=== PATIENT | male | born 1985 | race Caucasian/White ===

== ENCOUNTER 2020-05-16 16:19 | Outpatient (REF) | payer MEDICAID, SELFPAY | END 2020-05-16 16:20 | disposition home or self-care (01) | LOC: HO.LAB 16:19 | PROVIDERS: PCP Student in an Organized Health Care Education/Training Program; Visit Provider Internal Medicine | DX: Z20.828 Contact with and (suspected) exposure to other viral communicable diseases (principal) | CPT/HCPCS: 87635 ==

== ENCOUNTER 2020-06-24 15:01 | Inpatient (IN) | payer MEDICAID, SELFPAY ==
--- NOTE | 2020-06-24 | XR_ITS ---
EXAMINATION: LEFT TIB-FIB, LEFT ANKLE CLINICAL INFORMATION: Status post fall COMPARISON: None TECHNIQUE: 2 views left tib-fib, 2 views left ankle FINDINGS: There is a comminuted fracture involving the proximal fibular metaphysis with minimal fracture fragment displacement. The visualized portions of the knee joint appear unremarkable. There is a spiral fracture involving the distal tibia at the diaphyseal metaphyseal junction. There is mild lateral displacement of the distal fracture fragment without significant angulation. The ankle joint appears normal. No other fractures are seen. XR/XR ankle LT min 3V IMPRESSION: Tibial and fibular fractures as described above
--- NOTE | 2020-06-24 | XR_ITS ---
EXAMINATION: LEFT TIB-FIB, LEFT ANKLE CLINICAL INFORMATION: Status post fall COMPARISON: None TECHNIQUE: 2 views left tib-fib, 2 views left ankle FINDINGS: There is a comminuted fracture involving the proximal fibular metaphysis with minimal fracture fragment displacement. The visualized portions of the knee joint appear unremarkable. There is a spiral fracture involving the distal tibia at the diaphyseal metaphyseal junction. There is mild lateral displacement of the distal fracture fragment without significant angulation. The ankle joint appears normal. No other fractures are seen. XR/XR tibia fibula LT 2V IMPRESSION: Tibial and fibular fractures as described above
[2020-06-24 15:51] VITALS: BP 130/75; BP 135/67; PULSE 71; PULSE 80; RESP 17; TEMP 35.9; O2SAT 98; O2SAT 99; BMI 60.5
--- NOTE | 2020-06-24 20:14 | PC.NURSE ---
JESSICA CHIRINOS SPOKE WITH PERCY LYMAN AND PT WILL NEED TO ADMITTED.
--- NOTE | 2020-06-24 20:27 | ED_ITS ---
HPI - Extremity Injury (Lower) General Chief Complaint: Fall Stated Complaint: ankle pain Time Seen by Provider: 06/24/20 19:50 Source: family Mode of arrival: ambulatory History of Present Illness HPI Narrative: 35-year-old male with history of TBI from fall from at the age of 2 1/2 from forth floor window with residual right side weakness with contracture, Blindness right eye and Anxiety disorder under the care of legal guardian Lashonda [phone] and he stays with home shear staff Marta who presents via EMS from the day program at [facility] in [place] with complaint of injury to the left lower leg from a fall while he was walking out to go home at the end of the day program. No other injury. Fall was witnes sed. Nurse at the program called EMS. Department social services coordinator worker Omidveena is is a sign worker Lelia who is his healthcare proxy/legal guardian is currently in [place] for a work trip however she got stuck up there due to the COVID-19 she is in her 70s and has known [place] since the age of 2 when he had the initial injury. As noted above he is known to department social services coordinator and has a sign worker. complaint: leg injury Onset (ago): hour(s) Injury: Left: ankle Type of Injury: inversion Place: other (At Day program [facility] ) Other symptoms: none Related Data Home Medications Medication Instructions Recorded Confirmed Celexa 60 mg PO DAILY 06/24/20 06/24/20 Flonase 50 mcg NOSTRIL-R DAILY MDD 2 SPRAYS 06/24/20 06/24/20 acetaminophen 650 mg PO NEEDED PRN 06/24/20 06/24/20 gabapentin 60 mg PO BID MDD 600 06/24/20 06/24/20 loratadine 10 mg PO DAILY 06/24/20 06/24/20 omeprazole 20 mg PO DAILY MDD 20 MG 06/24/20 06/24/20 Allergies Allergy/AdvReac Type Severity Reaction Status Date / Time No Known Allergies Allergy Verified 06/24/20 19:41 [No Known Allergies*] Review of Systems Review of Systems: Constitutional: No Weight loss, No Fever, No Chills, No Night Sweats, No Fatigue, No Malaise ENT/Mouth: No Hearing loss, No Ear Pain, No Nasal Congestion, No Sinus Pain, No Hoarseness, No sore throat, No Rhinorrhea, No Swallowing Difficulty Eyes: No Eye Pain, No Swelling, No Redness, No Foreign Body, No Discharge, No Vision Changes Cardiovascular: No Chest Pain, No SOB, No Dyspnea on Exertion, No Orthopnea, No Edema, No Palpitations Respiratory: No Cough, No Sputum, No Wheezing No Dyspnea Gastrointestinal: No Nausea, No Vomiting, No Diarrhea, No Constipation, No abdominal Pain, No Hematochezia, No Melena Genitourinary: no irregular bleeding, No Dysuria, No Urinary Frequency, No Hematuria, No Urinary Incontinence, No Urgency, No Flank Pain, No Urinary Flow Changes, No Hesitancy Musculoskeletal: As noted in HPI Skin: No Skin Lesions, No rash Neuro: No Weakness, No Numbness, No Paresthesias, No Loss of Consciousness, No Dizziness, No Headache Psych: No Social Issues Heme/Lymph: No Bruising, No Bleeding,No Lymphadenopathy Endocrine: No Polyuria, No Polydipsia, No Temperature Intolerance Yes all other systems are reviewed and are negative [facility] Past Medical History Medical History Generalized anxiety disorder GERD (gastroesophageal reflux disease) Intellectual disability Obesity Traumatic brain injury Social History Social History Alcohol intake: never Smoked in Last 30 Days: No Advance Directives: No Advance Directives Information Provided: Yes Physical Exam Vital Signs: Vital Signs: Last Vital Signs Temp 96.6 F L 06/24/20 15:51 Pulse 71 06/24/20 15:51 Resp 17 06/24/20 15:51 BP 135/67 06/24/20 15:51 Pulse Ox 99 06/24/20 15:51 Body Mass Index 60.5 reviewed Const: General: cooperative and healthy appearing; No acute distress or intoxicated appearing Nutritional Appearance: average body habitus Orien tation/consciousness: patient oriented x3 HENMT: Head: Yes normal to inspection Ears: hearing grossly normal bilaterally Eyes: General: appearance normal, both eyes and all related structures Visual Nunes: normal visual nunes by confrontation Neck: Neck: Yes normal visual inspection and No tender Thyroid: Thyroid normal Chest: Chest palpation & inspection: normal inspection of the chest Resp: Effort & Inspection: normal respiratory effort Cardio: Jugular venous distension: no JVD GI: Inspection: Yes normal to inspection Percussion: Yes normal to percussion Auscultation: normal bowel sounds : General: Yes no CVA tenderness Back/Spine/Pelvis: Back: no CVA tenderness Skin: General skin exam: no rashes or lesions noted Neuro: General: patient oriented x3 Extrem: General: Yes normal to inspection Ankle/foot/toe images: 1. Area of pain, no swelling. No swelling to suggest compartment. No open wound. Course Course Course Narrative: Spoke to legal guardian Mary in via phone [phone] he is currently in [place] Reevaluation(s) Reevaluation #1: Posterior short-leg splint applied with extra caution. Consultations Consultation #1: Given the special circumstances case was discussed with Orthopedic on-call Maddison GREER Will admit to service. Likely anticipated surgery tomorrow Procedures Orthopedic Splinting/Casting Injury #1: Side: left Lower Extremity Injury Location: lower leg Lower Extremity Immobilizer: posterior splint and David wrap Additional Comments: Posterior short-leg splint applied. Neurovascularly intact. No evidence of compartment. Elevated on 3 pillows. MDM - Extremity Injury (Lower) Medical Records Attestation: I reviewed the patient's medical records. Lab Data Attestation: I reviewed the patient's lab results. Result diagrams: 06/24/20 20:40 06/24/20 20:40 Imaging Data Ext : Radiologist's impression: [place] [id number] XRay Report Signed Patient: Richar Escalona#: [id number] : 1985Acct:[id number] Age/Sex: 35 / MADM Date: 06/24/20 Loc: HO.ED Attending Dr: Ordering Physician: Petros Melendez MD Date of Service: 06/24/20 Procedure(s): XR ankle LT min 3V Accession Number(s): [id number] cc: Petros Melendez MD~ EXAMINATION: LEFT TIB-FIB, LEFT ANKLE CLINICAL INFORMATION: Status post fall COMPARISON: None TECHNIQUE: 2 views left tib-fib, 2 views left ankle FINDINGS: There is a comminuted fracture involving the proximal fibular metaphysis with minimal fracture fragment displacement. The visualized portions of the knee joint appear unremarkable. There is a spiral fracture involving the distal tibia at the diaphyseal metaphyseal junction. There is mild lateral displacement of the distal fracture fragment without significant angulation. The ankle joint appears normal. No other fractures are seen. XR/XR ankle LT min 3V IMPRESSION: Tibial and fibular fractures as described above Dictated By:SANDIP ENG MD Signed By:<Electronically signed by SANDIP ENG MD in OV>06/24/201937 DD/ 12 TD/TT: Sales Representative [employer]: Discharge Plan Discharge Clinical Impression: Fracture of tibia and fibula Qualifiers: Encounter type: initial encounter Fracture type: closed Laterality: left Qualified Code(s): S82.202A - Unspecified fracture of shaft of left tibia, initial encounter for closed fracture Patient Disposition: Admitted As Inpatient
[2020-06-24 20:47] LABS: MANUAL DIFF FLAG NO
[2020-06-24 20:50] LABS: Basophils Percent Auto 0.1 % (0-2); Hematocrit 42.5 % (42-52); Hemoglobin 14.9 g/dl (14.0-18.0); Imm Gran Abs Auto 0.04 X10*3/uL (0.00-0.03); Imm Gran Pct Auto 0.3 % (0.0-0.4); Lymphocytes Absolute Auto 0.8 X10*3/uL (1.2-4.9); Lymphocytes Percent Auto 6.6 % (20-40); Mean Corpuscular HGB Conc 35.1 g/dl (31.0-36.0); Mean Corpuscular Hemoglobin 29.6 pg (27.0-33.0); Mean Corpuscular Volume 84.3 fL (80-98); Mean Platelet Volume 10.2 fL (9.4-12.4); Monocytes Absolute Auto 0.5 X10*3/uL (0.1-1.2); Platelet Count 319 X10*3/uL (160-400); Red Blood Count 5.04 X10*6/uL (4.60-5.80); Red Cell Distribution Width 12.6 % (11.0-16.0); White Blood Count 12.4 X10*3/uL (4.8-10.8)
[2020-06-24] MEDS: LORazepam 2 MG/ML VIAL 0.5 MG IVPUSH (21:02)
[2020-06-24] MEDS: ondansetron HCL 4 MG/2 ML VIAL IVPUSH (21:02)
[2020-06-24 21:03] LABS: Prothrombin Time 11.9 SEC (10.8-13.0)
[2020-06-24 21:06] LABS: Partial Thromboplastin Time 24.7 SEC (24.1-38.0)
[2020-06-24 21:13] LABS: Alanine Aminotransferase 42 U/L (0-40); Albumin Level 4.8 g/dL (3.5-5.0); Alkaline Phosphatase 59 U/L (39-117); Anion Gap 15 (12-20); Aspartate Amino Transferase 22 U/L (5-37); Bilirubin Total 0.6 mg/dL (0.0-1.0); Blood Urea Nitrogen 17 mg/dL (9-16); Calcium 9.1 mg/dL (8.4-10.2); Carbon Dioxide 23 mmol/L (22-29); Chloride 102 mmol/L (96-108); Creatinine Clr Calc Pharmacy 191.8; Estimated Glomerular Filt Rate > 60; Glucose Random 117 mg/dL (60-115); Sodium 136 mmol/L (135-145); Total Protein 8.4 g/dL (6.5-8.0)
[2020-06-24 21:19] VITALS: RESP 18
[2020-06-24] MEDS: Morphine Sulfate 2 MG/ML CARTRIDGE IVPUSH (21:19)
[2020-06-24 21:22] LABS: COVID-19 Test Negative (Negative)
--- NOTE | 2020-06-24 21:24 | PC.NURSE ---
LEFT LOWER EXTREMITY WRAPPED IN [facility] [employer]ANDAGES BY JESSICA CHIRINOS. TOLERATED PROCEDURE WELL. AWAITING BED ASSIGNMENT/ADMISSION.
--- NOTE | 2020-06-24 22:00 | PC.NURSE ---
PT DEVELOPMENT DELAYED BASE HAS SCHOOL PROGRAM DIRECTOR ADULT FOSTER MOTHER AT BEDSIDE AT ALL TIME CALL BE IN PLACE.
[2020-06-24 22:08] VITALS: BP 121/79; PULSE 101; RESP 16; TEMP 37.2; O2SAT 95
[2020-06-24 22:52] VITALS: BP 122/66; PULSE 100; RESP 16; TEMP 37.2
--- NOTE | 2020-06-24 23:11 | PC.NURSE ---
NO ROOM AVAILABLE AT THIS TIME FOR UPSTAIRS BUSINESS PROGRAMMER AWARE. PT CALM AND COMFORTABLE AT THIS TIME.
--- NOTE | 2020-06-24 23:58 | PC.NURSE ---
PT TRANSFERED TO MAIN ED REPORT GIVEN TO ROYAL CHENG.
[2020-06-25] VITALS (17 sets, daily range): BP systolic 117–140; BP diastolic 55–86; PULSE 89–106; RESP 14–20; TEMP 36–37.4; O2SAT 88–97; BMI 27.4
[2020-06-25] MEDS: 0.9 % Sodium Chloride Flush 3 ML SYRINGE IVFLUSH (06:26)
[2020-06-25] MEDS: Dextrose 5 % and 0.45 % NaCl 1,000 ML 80 ML IVCONT ×2 (06:26→16:58)
[2020-06-25] MEDS: HYDROmorphone HCl 0.5 MG/0.5 ML SYRINGE 0.25 MG IVPUSH (07:20)
--- NOTE | 2020-06-25 08:09 | P.HPOP_ITS ---
History of Present Illness History of Present Illness Date of Service: 06/25/20 <Maddison Coronado PA-C - Last Filed: 06/25/20 14:50> 06/25/20 <Gloria Blackburn - Last Filed: 06/25/20 10:27> Chief complaint: KNEE PAIN <Maddison Coronado PA-C - Last Filed: 06/25/20 14:50> Narrative: Evangelista Escalona is a 35 year old male who has a h/o TBI from a fall out a 3rd story window when he was [age] years old. He is developmentally delayed as a result from this. 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 This was an unwitnessed fall. The staff at [employer] called EMS and he was transported to the ED for futher evaluation. On exam and xrays, he was found to have a left tibial shaft fracture. He is ambulatory without assistance. He lives with his care provider Marta and is pretty independent with his needs. He was admitted to orthopedic service for surgical planning. <Maddison Coronado PA-C Last Filed: 06/25/20 14:50> Review of Systems Review of Systems: Yes all other systems are reviewed and are negative <Maddison Coronado PA-C Last Filed: 06/25/20 14:50> [facility] Past Medical History Medical History: Medical History Generalized anxiety disorder GERD (gastroesophageal reflux disease) Intellectual disability Obesity Traumatic brain injury <Maddison Coronado PA-C Last Filed: 06/25/20 14:50> Social History Social History: Social History Alcohol intake: never Smoking Status: Never smoker Smoked in Last 30 Days: No Second Hand Smoke Exposure: No Use of substances other than those prescribed or required for medical reasons: No Advance Directives: No Advance Directives Information Provided: Yes <Maddison Coronado PA-C Last Filed: 06/25/20 14:50> Meds Allergies/Adverse reactions: Allergies Allergy/AdvReac Type Severity Reaction Status Date / Time No Known Allergies Allergy Verified 06/24/20 19:41 [No Known Allergies*] <Maddison Coronado PA-C Last Filed: 06/25/20 14:50> Home medications: Home Medications Medication Instructions Recorded Confirmed Type acetaminophen 650 mg PO Q4H PRN 06/25/20 06/25/20 History citalopram [Celexa] 60 mg PO DAILY 06/25/20 06/25/20 History fluticasone propionate [Flonase] 2 spray INTRANASAL DAILY 06/25/20 06/25/20 History gabapentin 300 mg PO BID 06/25/20 06/25/20 History loratadine 10 mg PO DAILY 06/25/20 06/25/20 History omeprazole 20 mg PO DAILY 06/25/20 06/25/20 History <Maddison Coronado PA-C Last Filed: 06/25/20 14:50> Physical Exam Vital Signs: Vital Signs: Last Vital Signs Temp 98.2 F 06/25/20 07:13 Pulse 99 06/25/20 07:13 Resp 18 06/25/20 07:13 BP 121/73 06/25/20 07:40 Pulse Ox 96 06/25/20 07:13 Body Mass Index 60.5 <Maddison Coronado PA-C Last Filed: 06/25/20 14:50> Const: General: cooperative and no acute distress <Maddison Coronado PA-C Last Filed: 06/25/20 14:50> Orientation/consciousness: patient oriented x3 <Maddison Coronado PA-C Last Filed: 06/25/20 14:50> HENMT: Head: Yes normal to inspection, Yes normocephalic and Yes atraumatic <Maddison Coronado PA-C Last Filed: 06/25/20 14:50> Eyes: General: appearance normal, both eyes and all related structures <Maddison Coronado PA-C Last Filed: 06/25/20 14:50> Neck: Neck: Yes normal visual inspection and Yes no lymphadenopathy <Alonso Coronado PA-C Last Filed: 06/25/20 14:50> Resp: Effort & Inspection: normal respiratory effort and able to speak in co mplete sentences <Maddison Coronado PA-C Last Filed: 06/25/20 14:50> Cardio: Rate: regular rate <HAYDE Cardenas Last Filed: 06/25/20 14:50> Peripheral pulses: Peripheral pulses 2+ throughout <HAYDE Cardenas Last Filed: 06/25/20 14:50> GI: Palpation (GI): Soft to palpation <Maddison Coronado PA-C Last Filed: 06/25/20 14:50> Skin: General skin exam: no rashes or lesions noted and turgor normal <HAYDE Cao Last Filed: 06/25/20 14:50> Neuro: General: patient oriented x3 <HAYDE Cardenas Filed: 06/25/20 14:50> Extrem: Other: Left lower extremity skin intact, there is bruising over the tibial shaft. Minimal swelling. Tenderness to palpation and pulses present. xrays of the left tib/fib: There is a comminuted fracture involving the proximal fibular metaphysis with minimal fracture fragment displacement. The visualized portions of the knee joint appear unremarkable. There is a spiral fracture involving the distal tibia at the diaphyseal metaphyseal junction. There is mild lateral displacement of the distal fracture fragment without significant angulation. <Maddison Coronado PA-C Last Filed: 06/25/20 14:50> Results Labs Result Diagrams: : 06/24/20 20:40 06/24/20 20:40 <HAYDE Cardenas Last Filed: 06/25/20 14:50> Labs: Abnormal lab results 06/24/20 06/24/20 Range/Units 20:40 20:40 WBC 12.4 H (4.8-10.8) X10*3/uL Neut % (Auto) 89.0 H (45-73) % Lymph % (Auto) 6.6 L (20-40) % Lymph # (Auto) 0.8 L (1.2-4.9) X10*3/uL Abs Immat Gran (auto) 0.04 H (0.00-0.03) X10*3/uL Absolute Neuts (auto) 11.0 H (2.0-8.3) X10*3/uL BUN 17 H (9-16) mg/dL Random Glucose 117 H (60-115) mg/dL ALT 42 H (0-40) U/L Total Protein 8.4 H (6.5-8.0) g/dL H & H 06/24/20 Range/Units 20:40 Hgb 14.9 (14.0-18.0) g/dl Hct 42.5 (42-52) % Coagulation 06/24/20 Range/Units 20:40 INR 1.0 (0.9-1.1) All other labs normal. <HAYDE Cardenas Last Filed: 06/25/20 14:50> Assessment and Plan (1) Tibia fracture: Status: Acute <HAYDE Cardenas Filed: 06/25/20 14:50> I discussed the case with Dr Crowell , and to the patient and his adult home care provider, Marta. I explained the extent of the injury to the patient and his child care centre manager and options available which include surgical intervention. I explained the procedure in detail along with the length of recovery and rehab course. I explained the risk, benefits and alternatives. Risk including, but not limited to infection, blood clots, bleeding, non union or malunion and nervetissue damage to surrounding areas. I answered all their questions and with their understanding they have agreed to move forward with Operative Fixation of the left tibia . I will contact Lelia Carl who is the legal guardian to discuss and obtain consent. <HAYDE Cardenas Last Filed: 06/25/20 14:50>
--- NOTE | 2020-06-25 08:17 | PC.NURSE ---
call form [facility] RN in short stay. report given for patient to [facility], states pt could be brought over to wait for surgery. tech to transport patient.
--- NOTE | 2020-06-25 10:00 | FL_ITS ---
EXAMINATION: XR FLUOROSCOPY WITH IMAGES CLINICAL INFORMATION: Fractures tibia and fibula. COMPARISON: Radiographs left lower leg and ankle 06/24/2020 TECHNIQUE: Fluoroscopy performed by Dr. Ady Crowell. Fluoroscopy time: 1.8 minutes DAP: 0.131 Gycm2 Images: 7 FINDINGS: The tibial fracture is reduced with intramedullary leilani, proximal interlocking screw, and 2 distal interlocking screws. Fracture fragments are in near-anatomic alignment. The hardware appears intact. Proximal fibular fracture is without significant change. FL/FL guidance in OR IMPRESSION: Status post reduction internal fixation tibial fracture in near-anatomic alignment. Hardware intact. Fibular fracture without significant change.
--- NOTE | 2020-06-25 10:28 | HO.ANESPROP2 ---
[facility] Past Medical History Medical History Generalized anxiety disorder GERD (gastroesophageal reflux disease) Intellectual disability Obesity Traumatic brain injury Social History Social History Alcohol intake: never Smoking Status: Never smoker Smoked in Last 30 Days: No Second Hand Smoke Exposure: No Use of substances other than those prescribed or required for medical reasons: No Advance Directives: No Advance Directives Information Provided: Yes Meds Allergies Allergy/AdvReac Type Severity Reaction Status Date / Time No Known Allergies Allergy Verified 06/24/20 19:41 [No Known Allergies*] Home Medications Medication Instructions Recorded Confirmed Type acetaminophen 650 mg PO Q4H PRN 06/25/20 06/25/20 History citalopram [Celexa] 60 mg PO DAILY 06/25/20 06/25/20 History fluticasone propionate [Flonase] 2 spray INTRANASAL DAILY 06/25/20 06/25/20 History gabapentin 300 mg PO BID 06/25/20 06/25/20 History loratadine 10 mg PO DAILY 06/25/20 06/25/20 History omeprazole 20 mg PO DAILY 06/25/20 06/25/20 History Exam Exam Date and Time: June 25, 2020 1028 Height,Weight and Vital Signs: Height 5 ft 6 in Weight 77.111 kg Last Vital Signs Temp 98.0 F 06/25/20 08:41 Pulse 92 06/25/20 08:41 Resp 16 06/25/20 08:41 BP 127/66 06/25/20 08:41 Pulse Ox 96 06/25/20 08:41 Pertinent Lab Results Pertinent Lab Results: Laboratory Tests 06/24/20 06/24/20 06/24/20 20:40 20:40 20:40 WBC 12.4 H RBC 5.04 Hgb 14.9 Hct 42.5 MCV 84.3 MCH 29.6 MCHC 35.1 RDW 12.6 Plt Count 319 MPV 10.2 Immature Gran % (Auto) 0.3 Neut % (Auto) 89.0 H Lymph % (Auto) 6.6 L Dixie % (Auto) 4.0 Eos % (Auto) 0.0 Baso % (Auto) 0.1 Lymph # (Auto) 0.8 L [place] # (Auto) 0.5 Eos # (Auto) 0.0 Baso # (Auto) 0.0 Abs Immat Gran (auto) 0.04 H Absolute Neuts (auto) 11.0 H Absolute Nucleated RBC 0.000 Nucleated RBC % (auto) 0.0 PT 11.9 INR 1.0 APTT 24.7 Sodium 136 Potassium 4.0 Chloride 102 Carbon Dioxide 23 Anion Gap 15 BUN 17 H Creatinine 0.80 Estim Creat Clear Calc 191.8 Estimated GFR > 60 Random Glucose 117 H Calcium 9.1 Total Bilirubin 0.6 AST 22 ALT 42 H Alkaline Phosphatase 59 Total Protein 8.4 H Albumin 4.8 COVID-19 ([facility]) COVID-19 Clin Com Blood Type Antibody Screen 06/24/20 06/24/20 20:40 20:40 WBC RBC Hgb Hct MCV MCH MCHC RDW Plt Count MPV Immature Gran % (Auto) Neut % (Auto) Lymph % (Auto) Dixie % (Auto) Eos % (Auto) Baso % (Auto) Lymph # (Auto) Dixie # (Auto) Eos # (Auto) Baso # (Auto) Abs Immat Gran (auto) Absolute Neuts (auto) Absolute Nucleated RBC Nucleated RBC % (auto) PT INR APTT Sodium Potassium Chloride Carbon Dioxide Anion Gap BUN Creatinine Estim Creat Clear Calc Estimated GFR Random Glucose Calcium Total Bilirubin AST ALT Alkaline Phosphatase Total Protein Albumin COVID-19 ([facility]) Negative COVID-19 Clin Com See Note Blood Type A Positive Antibody Screen NEGATIVE Airway Mallampati Class: II TM Dist: >3cm Neck ROM: Full Heart: RRR Lungs: CTA
--- NOTE | 2020-06-25 10:29 | HO.ANESPROP2 ---
[facility] Past Medical History Medical History Generalized anxiety disorder GERD (gastroesophageal reflux disease) Intellectual disability Obesity Traumatic brain injury Social History Social History Alcohol intake: never Smoking Status: Never smoker Smoked in Last 30 Days: No Second Hand Smoke Exposure: No Use of substances other than those prescribed or required for medical reasons: No Advance Directives: No Advance Directives Information Provided: Yes Meds Allergies Allergy/AdvReac Type Severity Reaction Status Date / Time No Known Allergies Allergy Verified 06/24/20 19:41 [No Known Allergies*] Home Medications Medication Instructions Recorded Confirmed Type acetaminophen 650 mg PO Q4H PRN 06/25/20 06/25/20 History citalopram [Celexa] 60 mg PO DAILY 06/25/20 06/25/20 History fluticasone propionate [Flonase] 2 spray INTRANASAL DAILY 06/25/20 06/25/20 History gabapentin 300 mg PO BID 06/25/20 06/25/20 History loratadine 10 mg PO DAILY 06/25/20 06/25/20 History omeprazole 20 mg PO DAILY 06/25/20 06/25/20 History Exam Exam Date and Time: June 25, 2020 1029 Height,Weight and Vital Signs: Height 5 ft 6 in Weight 77.111 kg Last Vital Signs Temp 98.0 F 06/25/20 08:41 Pulse 92 06/25/20 08:41 Resp 16 06/25/20 08:41 BP 127/66 06/25/20 08:41 Pulse Ox 96 06/25/20 08:41 Pertinent Lab Results Pertinent Lab Results: Laboratory Tests 06/24/20 06/24/20 06/24/20 20:40 20:40 20:40 WBC 12.4 H RBC 5.04 Hgb 14.9 Hct 42.5 MCV 84.3 MCH 29.6 MCHC 35.1 RDW 12.6 Plt Count 319 MPV 10.2 Immature Gran % (Auto) 0.3 Neut % (Auto) 89.0 H Lymph % (Auto) 6.6 L [place] % (Auto) 4.0 Eos % (Auto) 0.0 Baso % (Auto) 0.1 Lymph # (Auto) 0.8 L [place] # (Auto) 0.5 Eos # (Auto) 0.0 Baso # (Auto) 0.0 Abs Immat Gran (auto) 0.04 H Absolute Neuts (auto) 11.0 H Absolute Nucleated RBC 0.000 Nucleated RBC % (auto) 0.0 PT 11.9 INR 1.0 APTT 24.7 Sodium 136 Potassium 4.0 Chloride 102 Carbon Dioxide 23 Anion Gap 15 BUN 17 H Creatinine 0.80 Estim Creat Clear Calc 191.8 Estimated GFR > 60 Random Glucose 117 H Calcium 9.1 Total Bilirubin 0.6 AST 22 ALT 42 H Alkaline Phosphatase 59 Total Protein 8.4 H Albumin 4.8 COVID-19 ([facility]) COVID-19 Clin Com Blood Type Antibody Screen 06/24/20 06/24/20 20:40 20:40 WBC RBC Hgb Hct MCV MCH MCHC RDW Plt Count MPV Immature Gran % (Auto) Neut % (Auto) Lymph % (Auto) [place] % (Auto) Eos % (Auto) Baso % (Auto) Lymph # (Auto) [place] # (Auto) Eos # (Auto) Baso # (Auto) Abs Immat Gran (auto) Absolute Neuts (auto) Absolute Nucleated RBC Nucleated RBC % (auto) PT INR APTT Sodium Potassium Chloride Carbon Dioxide Anion Gap BUN Creatinine Estim Creat Clear Calc Estimated GFR Random Glucose Calcium Total Bilirubin AST ALT Alkaline Phosphatase Total Protein Albumin COVID-19 ([facility]) Negative COVID-19 Clin Com See Note Blood Type A Positive Antibody Screen NEGATIVE Assessment and Plan Assessment Anesthesia Assessment: Anesthesia Plan Discussed and Chart Reviewed Final Anesthetic Review NPO: Yes ASA Class: III Final Preanesthetic Review: No Changes in Pt Med Stat, Meds/Allgs Chart Reviewed, Consent Obtained/Reviewed and Anes Risks/Benef Reviewed Patient Risk: Intermediate Procedure Risk: Low Anesthetic Plan Anesthetic Plan: GA Disposition: Standard PACU
[2020-06-25] MEDS: ceFAZolin Sodium/Dextrose,Iso 2 GM/50 ML PIGGYBACK IV (12:08)
--- NOTE | 2020-06-25 13:51 | PM.OP ---
Brief Operative Note Date of Service: 06/25/20 Pre-op diagnosis: left tibia fracture Post-op diagnosis: same Procedure: IMN left tibia Implants: po [id number] Surgeon: Ady Crowell MD Anesthesia: GETA and regional Estimated blood loss (mL): 200 Tourniquet time (min): 23 IV fluids (mL): 1,500 Pathology: none sent Condition: stable Disposition: PACU
--- NOTE | 2020-06-25 16:56 | PM.IMCN ---
History of Present Illness Data of Consult Service Date: 06/25/20 Requesting physician: Ady Crowell Primary Care Provider: MD ELINA Alcala Reason for consult: medical management 35-year-old male with history of traumatic brain injury presented with fall and tibial fracture, patient underwent surgery today, patient seen and examined at bedside Patient was reporting pain at surgery site, Denies any chest pain ,shortness of breath ,nausea vomiting Review of Systems Constitutional: Constitutional: Denies weakness Cardiovascular: Cardiovascular: Denies chest pain and Denies dyspnea Respiratory: Respiratory: Denies dyspnea Gastrointestinal: Gastrointestinal: Denies nausea and Denies vomiting Neurologic: Denies weakness [facility] Medical History Generalized anxiety disorder GERD (gastroesophageal reflux disease) Intellectual disability Obesity Traumatic brain injury Family History (Updated 06/25/20 @ 17:03 by Renato Booker MD) Other HTN (hypertension) Social History Alcohol intake: never Smoking Status: Never smoker Smoked in Last 30 Days: No Second Hand Smoke Exposure: No Use of substances other than those prescribed or required for medical reasons: No Advance Directives: No Advance Directives Information Provided: Yes Meds Allergies Allergy/AdvReac Type Severity Reaction Status Date / Time No Known Allergies Allergy Verified 06/24/20 19:41 [No Known Allergies*] Home Medications Medication Instructions Recorded Confirmed Type acetaminophen 650 mg PO Q4H PRN 06/25/20 06/25/20 History citalopram [Celexa] 60 mg PO DAILY 06/25/20 06/25/20 History fluticasone propionate [Flonase] 2 spray INTRANASAL DAILY 06/25/20 06/25/20 History gabapentin 300 mg PO BID 06/25/20 06/25/20 History loratadine 10 mg PO DAILY 06/25/20 06/25/20 History omeprazole 20 mg PO DAILY 06/25/20 06/25/20 History Physical Exam Vital Signs and Narrative: Vital Signs: Last Vital Signs Temp 99.3 F 06/25/20 16:32 Pulse 99 06/25/20 16:32 Resp 17 06/25/20 16:32 BP 134/80 06/25/20 16:32 Pulse Ox 95 06/25/20 16:32 Body Mass Index 27.4 Const: General: comfortable Resp: Effort & Inspection: normal respiratory effort Auscultation: clear to auscultation bilaterally Cardio: Jugular venous distension: no JVD GI: Inspection: Yes normal to inspection Results Labs CBC and Chem 7: 06/24/20 20:40 06/24/20 20:40 Labs: Laboratory Results - last 24 hr 06/24/20 06/24/20 06/24/20 20:40 20:40 20:40 MCV 84.3 MCH 29.6 MCHC 35.1 RDW 12.6 Plt Count 319 MPV 10.2 Immature Gran % (Auto) 0.3 Neut % (Auto) 89.0 H Lymph % (Auto) 6.6 L [place] % (Auto) 4.0 Eos % (Auto) 0.0 Baso % (Auto) 0.1 Lymph # (Auto) 0.8 L [place] # (Auto) 0.5 Eos # (Auto) 0.0 Baso # (Auto) 0.0 Abs Immat Gran (auto) 0.04 H Absolute Neuts (auto) 11.0 H Absolute Nucleated RBC 0.000 Nucleated RBC % (auto) 0.0 PT 11.9 INR 1.0 APTT 24.7 Anion Gap 15 Estim Creat Clear Calc 191.8 Estimated GFR > 60 Random Glucose 117 H Calcium 9.1 Total Bilirubin 0.6 AST 22 ALT 42 H Alkaline Phosphatase 59 Total Protein 8.4 H Albumin 4.8 COVID-19 ([facility]) COVID-19 Clin Com Blood Type Antibody Screen 06/24/20 06/24/20 20:40 20:40 MCV MCH MCHC RDW Plt Count MPV Immature Gran % (Auto) Neut % (Auto) Lymph % (Auto) Vil[place] % (Auto) Eos % (Auto) Baso % (Auto) Lymph # (Auto) [place] # (Auto) Eos # (Auto) Baso # (Auto) Abs Immat Gran (auto) Absolute Neuts (auto) Absolute Nucleated RBC Nucleated RBC % (auto) PT INR APTT Anion Gap Estim Creat Clear Calc Estimated GFR Random Glucose Calcium Total Bilirubin AST ALT Alkaline Phosphatase Total Protein Albumin COVID-19 ([facility]) Negative COVID-19 Clin Com See Note Blood Type A Positive Antibody Screen NEGATIVE Imaging Radiologist's Impressions: Impressions Ankle X-Ray 06/24/20 00:00 IMPRESSION: Tibial and fibular fractures as described above Tibia/Fibula X-Ray 06/24/20 00:00 IMPRESSION: Tibial and fibular fractures as described above Assessment and Plan (1) Traumatic brain injury: Status: Acute (2) Generalized anxiety disorder: Status: Acute (3) GERD (gastroesophageal reflux disease): Status: Acute (4) Tibia fracture: Status: Acute (5) Fracture of tibia and fibula: Qualifiers: Encounter type: initial encounter Fracture type: closed Laterality: left Qualified Code(s): S82.202A - Unspecified fracture of shaft of left tibia, initial encounter for closed fracture; S82.402A - Unspecified fracture of shaft of left fibula, initial encounter for closed fracture Status: Acute 35-year-old male with traumatic brain injury presented with fall found to have tibial fracture underwent surgery left tibial fracture s/p surgery management per surgery history of GERD continue omeprazole JEEVAN and mood disorder continue lexapro h/o trumatic brain injury dvt ppx per orthopedic
[2020-06-25] MEDS: Gabapentin 300 MG CAPSULE PO (20:27)
[2020-06-25] MEDS: Acetaminophen 325 MG TABLET 650 MG PO (22:43)
[2020-06-25] MEDS: oxyCODONE HCl Immed Release 5 MG TABLET PO (22:44)
[2020-06-26 03:42] VITALS: BP 135/95; PULSE 108; RESP 20; TEMP 36.7; O2SAT 96
[2020-06-26] MEDS: Dextrose 5 % and 0.45 % NaCl 1,000 ML 80 ML IVCONT (05:35)
[2020-06-26 06:23] LABS: MANUAL DIFF FLAG NO
[2020-06-26 06:29] LABS: Basophils Percent Auto 0.1 % (0-2); Hematocrit 32.8 % (42-52); Hemoglobin 11.2 g/dl (14.0-18.0); Imm Gran Abs Auto 0.04 X10*3/uL (0.00-0.03); Imm Gran Pct Auto 0.4 % (0.0-0.4); Mean Corpuscular HGB Conc 34.1 g/dl (31.0-36.0); Mean Corpuscular Hemoglobin 29.3 pg (27.0-33.0); Mean Corpuscular Volume 85.9 fL (80-98); Mean Platelet Volume 10.1 fL (9.4-12.4); Monocytes Percent Auto 9.4 % (2-11); Neutrophils Percent Auto 72.1 % (45-73); Platelet Count 227 X10*3/uL (160-400); Red Blood Count 3.82 X10*6/uL (4.60-5.80); Red Cell Distribution Width 12.7 % (11.0-16.0)
[2020-06-26 07:12] LABS: Anion Gap 11 (12-20); Blood Urea Nitrogen 14 mg/dL (9-16); Calcium 8.4 mg/dL (8.4-10.2); Carbon Dioxide 24 mmol/L (22-29); Chloride 106 mmol/L (96-108); Estimated Glomerular Filt Rate > 60; Glucose Fasting 117 mg/dL (60-99); Sodium 137 mmol/L (135-145)
[2020-06-26 07:17] VITALS: BP 120/68; PULSE 84; RESP 19; TEMP 36.4; O2SAT 96
[2020-06-26] MEDS: Loratadine 10 MG TABLET PO (07:50)
[2020-06-26] MEDS: Escitalopram Oxalate 10 MG TABLET 30 MG PO (07:50)
[2020-06-26] MEDS: Gabapentin 300 MG CAPSULE PO ×2 (07:50→21:27)
[2020-06-26] MEDS: oxyCODONE HCl Immed Release 5 MG TABLET PO ×2 (07:50→22:26)
--- NOTE | 2020-06-26 08:19 | PM.PNORT ---
Subjective Subjective Date of Service: 06/26/20 Principal diagnosis: s/p IMN left tibia Physical Exam Vital Signs: Vital Signs: Last Vital Signs Temp 97.6 F 06/26/20 07:17 Pulse 84 06/26/20 07:17 Resp 19 06/26/20 07:17 BP 120/68 06/26/20 07:17 Pulse Ox 96 06/26/20 07:17 Body Mass Index 27.4 Const: General: cooperative, healthy appearing and no acute distress Resp: Effort & Inspection: normal respiratory effort and able to speak in complete sentences Cardio: Rate: regular rate Peripheral pulses: Peripheral pulses 2+ throughout GI: Inspection: Yes normal to inspection Palpation (GI): Soft to palpation Skin: General skin exam: no rashes or lesions noted Extrem: Other: Bandage clean, dry and intact. Minimal swelling , senstaion intact, pulses present Progress Note: A&P Assessment and plan (1) Tibia fracture: Status: Acute Assessment and Plan: Continue pain mgmnt Begin asa for dvt ppx begin PT /OT for LT tibia IMN-WBAT Dispo planning-Pending PT eval, pain mgmnt Fall Risk Details Current Medications: Current Medications Generic Name Dose Route Start Last Admin Trade Name Freq PRN Reason Stop Dose Admin Acetaminophen 650 mg 06/25/20 05:33 06/25/20 22:43 Acetaminophen 325 Mg Tablet PO 650 mg Q6H PRN Administration Pain, Mild (Pain Scale 1-3) Escitalopram Oxalate 30 mg 06/25/20 12:30 06/26/20 07:50 Escitalopram Oxalate 10 Mg Tablet PO 30 mg DAILY GREY Administration Gabapentin 300 mg 06/25/20 09:00 06/26/20 07:50 Gabapentin 300 Mg Capsule PO 300 mg BID GREY Administration Hydromorphone HCl 0.25 mg 06/25/20 17:22 Hydromorphone Hcl 0.5 Mg/0.5 Ml Syringe IVPUSH Q6H PRN Pain, Severe (Pain Scale 7-10) Dextrose/Sodium Chloride 1,000 mls @ 80 mls/hr 06/25/20 05:33 06/26/20 05:35 D51/2ns IVCONT 80 mls/hr .[id number] GREY Administration Loratadine 10 mg 06/25/20 12:15 06/26/20 07:50 Loratadine 10 Mg Tablet PO 10 mg DAILY GREY Administration Oxycodone HCl 5 mg 06/25/20 05:33 06/26/20 07:50 Oxycodone Hcl Immed Release 5 Mg Tablet PO 5 mg Q4H PRN Administration Pain, Moderate (Pain Scale 4-6 Pharmacy Consult 1 each 06/24/20 20:30 Consult Rx Perform Med Rec MISCELLANE ONCE PRN Consult order Senna 17.2 mg 06/25/20 05:33 Sennosides 8.6 Mg Tablet PO BEDTIME PRN Constipation Sodium Chloride 3 ml 06/25/20 05:33 06/26/20 07:07 0.9 % Sodium Chloride Flush 3 Ml Syringe IVFLUSH Not Given QSHIFT GREY Time Spent With Patient Time: Total time spent is greater than 50% in coordination of care (as documented) at patient's floor/unit and/or counseling patient: Time with patient: 15 - 24 minutes
[2020-06-26] MEDS: Aspirin 325 MG TABLET PO ×2 (10:53→21:26)
[2020-06-26] MEDS: Acetaminophen 325 MG TABLET 650 MG PO ×2 (10:53→22:25)
[2020-06-26 11:35] VITALS: BP 122/63; PULSE 103; RESP 18; TEMP 36.6; O2SAT 97
--- NOTE | 2020-06-26 12:11 | P.PNIM_ITS ---
Subjective Subjective Date of Service: 06/26/20 Interval History: Patient seen and examined at bedside patient reported some pain at surgery site Constitutional Constitutional: Denies weakness Cardiovascular Cardiovascular: Denies chest pain and Denies dyspnea Respiratory Respiratory: Denies dyspnea Gastrointestinal Gastrointestinal: Denies nausea and Denies vomiting Neurologic Neurologic: Denies weakness Physical Exam 2 Vital Signs: Vital Signs: Last Vital Signs Temp 97.9 F 06/26/20 11:35 Pulse 103 H 06/26/20 11:35 Resp 18 06/26/20 11:35 BP 122/63 06/26/20 11:35 Pulse Ox 97 06/26/20 11:35 Body Mass Index 27.4 Const: General: comfortable Resp: Effort & Inspection: normal respiratory effort Auscultation: clear to auscultation bilaterally Cardio: Jugular venous distension: no JVD GI: Inspection: Yes normal to inspection Objective Data Current Medications Generic Name Dose Route Start Last Admin Trade Name Freq PRN Reason Stop Dose Admin Acetaminophen 650 mg 06/25/20 05:33 06/26/20 10:53 Acetaminophen 325 Mg Tablet PO 650 mg Q6H PRN Administration Pain, Mild (Pain Scale 1-3) Aspirin 325 mg 06/26/20 12:00 06/26/20 10:53 Aspirin 325 Mg Tablet PO 325 mg BID GREY Administration Escitalopram Oxalate 30 mg 06/25/20 12:30 06/26/20 07:50 Escitalopram Oxalate 10 Mg Tablet PO 30 mg DAILY GREY Administration Gabapentin 300 mg 06/25/20 09:00 06/26/20 07:50 Gabapentin 300 Mg Capsule PO 300 mg BID GREY Administration Hydromorphone HCl 0.25 mg 06/25/20 17:22 Hydromorphone Hcl 0.5 Mg/0.5 Ml Syringe IVPUSH Q6H PRN Pain, Severe (Pain Scale 7-10) Dextrose/Sodium Chloride 1,000 mls @ 80 mls/hr 06/25/20 05:33 06/26/20 05:35 D51/2ns IVCONT 80 mls/hr .[id number] GREY Administration Loratadine 10 mg 06/25/20 12:15 06/26/20 07:50 Loratadine 10 Mg Tablet PO 10 mg DAILY GREY Administration Oxycodone HCl 5 mg 06/25/20 05:33 06/26/20 07:50 Oxycodone Hcl Immed Release 5 Mg Tablet PO 5 mg Q4H PRN Administration Pain, Moderate (Pain Scale 4-6 Pharmacy Consult 1 each 06/24/20 20:30 Consult Rx Perform Med Rec MISCELLANE ONCE PRN Consult order Senna 17.2 mg 06/25/20 05:33 Sennosides 8.6 Mg Tablet PO BEDTIME PRN Constipation Sodium Chloride 3 ml 06/25/20 05:33 06/26/20 07:07 0.9 % Sodium Chloride Flush 3 Ml Syringe IVFLUSH Not Given QSHIFT GREY Labs CBC & Chem 7: 06/26/20 06:13 06/26/20 06:13 Assessment and Plan (1) Traumatic brain injury: Status: Acute (2) Generalized anxiety disorder: Status: Acute (3) GERD (gastroesophageal reflux disease): Status: Acute (4) Tibia fracture: Status: Acute (5) Fracture of tibia and fibula: Status: Acute Assessment and Plan: 35-year-old male with traumatic brain injury presented with fall found to have tibial fracture underwent surgery left tibial fracture s/p surgery management per surgery History of GERD continue omeprazole JEEVAN and mood disorder continue lexapro h/o trumatic brain injury dvt ppx aspirin 325 mg
[2020-06-26] MEDS: HYDROmorphone HCl 0.5 MG/0.5 ML SYRINGE 0.25 MG IVPUSH (14:06)
[2020-06-26] MEDS: 0.9 % Sodium Chloride Flush 3 ML SYRINGE IVFLUSH (14:07)
--- NOTE | 2020-06-26 14:40 | MHC.CM.PN ---
Met with pt. Cooperative, but slightly anxious. Wants to see Marta ([phone])his foster mother. CM told pt I was working on having Marta visit. Pt has a guardian, Lelia Norman ([phone]). Spoke with her x3 today. Was very upset that we had a no visitor policy. Explained to her that was because of COVID, but I would contact the doctor to see if Marta could visit secondary to pt being intellectually disabled, having a TBI and severe anxiety. Leliamike, also initially refusing SNF for rehab placement. CM spoke with PT about pt having PT at home. PT re-evaluated patient and PT continues to recommend SNF PT rehab for safety. Explained this to mike Rowell and she has agreed to SNF for rehab, but wants Marta, foster mother, to be able to see him/ Explained to her that I would let the SNF know, but could not speak to their visiting policy.CM spoke with Dr. Booker, Dr. Crowell, and Dr. Simone Sanchez and received permission for Marta to visit pt. Both Lelia and Marta aware. Marta will be in to see pt. Marta pleased that pt will go to rehab for therapy, as she said her house is not set up for him and she would need equipment and a ramp.States she could face time him at the facility. Main entrance screening personnel aware that Makenna will visit today. Referrals placed at [facility], [facility], and [facility] [place]
--- NOTE | 2020-06-26 15:24 | HO.POSTANES ---
Post Anesthesia Evaluation Post Anesthesia Evaluation Vital Signs: Vital Signs Temp Pulse Resp BP Pulse Ox 06/26/20 11:35 97.9 F 103 H 18 122/63 97 06/26/20 07:17 97.6 F 84 19 120/68 96 06/26/20 03:42 98.0 F 108 H 20 135/95 H 96 Anesthesia: General Mental Status: Awake Pain Control: Satisfactory Nausea/Vomiting: None Hydration: Adequate Anesthesia-Related Issues: No Anes. Related Issues
[2020-06-26 16:00] VITALS: BP 134/81; PULSE 100; RESP 18; TEMP 36.6; O2SAT 94
--- NOTE | 2020-06-26 16:10 | MHC.CM.PN ---
Marta, foster mother, in with patient. Patient much calmer. Speaking with friend on phone. Marta explained that he will need to go the rehab for therapy. Lelia, his guardian also spoke with him and encouraged him to listen to the doctors so help will get better. Marta requesting that we also refer to [facility]. Will place referral
[2020-06-26 19:58] VITALS: BP 143/84; PULSE 97; RESP 16; TEMP 36.4; O2SAT 95
[2020-06-27] VITALS (8 sets, daily range): BP systolic 116–139; BP diastolic 69–85; PULSE 76–93; RESP 16–18; TEMP 36.1–36.6; O2SAT 94–98
[2020-06-27] MEDS: 0.9 % Sodium Chloride Flush 3 ML SYRINGE IVFLUSH ×4 (02:11→23:32)
[2020-06-27] MEDS: oxyCODONE HCl Immed Release 5 MG TABLET PO ×3 (03:23→17:57)
--- NOTE | 2020-06-27 08:00 | PM.PNORT ---
Subjective Subjective Date of Service: 06/27/20 Interval history: POD 2 s/p LT tibia IMN No overnight events, resting in bed, he denies pain but also states he has pain. He worked with PT / OT yeater Physical Exam Vital Signs: Vital Signs: Last Vital Signs Temp 97.9 F 06/27/20 03:18 Pulse 89 06/27/20 03:18 Resp 16 06/27/20 03:18 BP 120/69 06/27/20 03:18 Pulse Ox 96 06/27/20 03:18 Body Mass Index 27.4 Extrem: Other: Left knee bandage intact, no erythema mild edema, sensation intact. Progress Note: A&P Assessment and plan (1) Tibia fracture: Status: Acute Assessment and Plan: Continue pain mgmnt cont asa for dvt ppx cont PT/OT Dispo planning-Pending PT Fall Risk Details Current Medications: Current Medications Generic Name Dose Route Start Last Admin Trade Name Freq PRN Reason Stop Dose Admin Acetaminophen 650 mg 06/25/20 05:33 06/26/20 22:25 Acetaminophen 325 Mg Tablet PO 650 mg Q6H PRN Administration Pain, Mild (Pain Scale 1-3) Aspirin 325 mg 06/26/20 12:00 06/26/20 21:26 Aspirin 325 Mg Tablet PO 325 mg BID GREY Administration Escitalopram Oxalate 30 mg 06/25/20 12:30 06/26/20 07:50 Escitalopram Oxalate 10 Mg Tablet PO 30 mg DAILY GREY Administration Gabapentin 300 mg 06/25/20 09:00 06/26/20 21:27 Gabapentin 300 Mg Capsule PO 300 mg BID GREY Administration Hydromorphone HCl 0.25 mg 06/25/20 17:22 06/26/20 14:06 Hydromorphone Hcl 0.5 Mg/0.5 Ml Syringe IVPUSH 0.25 mg Q6H PRN Administration Pain, Severe (Pain Scale 7-10) Loratadine 10 mg 06/25/20 12:15 06/26/20 07:50 Loratadine 10 Mg Tablet PO 10 mg DAILY GREY Administration Oxycodone HCl 5 mg 06/25/20 05:33 06/27/20 03:23 Oxycodone Hcl Immed Release 5 Mg Tablet PO 5 mg Q4H PRN Administration Pain, Moderate (Pain Scale 4-6 Pharmacy Consult 1 each 06/24/20 20:30 Consult Rx Perform Med Rec MISCELLANE ONCE PRN Consult order Senna 17.2 mg 06/25/20 05:33 Sennosides 8.6 Mg Tablet PO BEDTIME PRN Constipation Sodium Chloride 3 ml 06/25/20 05:33 06/27/20 02:11 0.9 % Sodium Chloride Flush 3 Ml Syringe IVFLUSH 3 ml QSHIFT GREY Administration Time Spent With Patient Time: Total time spent is greater than 50% in coordination of care (as documented) at patient's floor/unit and/or counseling patient: Time with patient: less than 15 minutes
[2020-06-27] MEDS: Acetaminophen 325 MG TABLET 650 MG PO ×2 (09:33→17:57)
[2020-06-27] MEDS: Aspirin 325 MG TABLET PO ×2 (09:33→20:00)
[2020-06-27] MEDS: Loratadine 10 MG TABLET PO (09:33)
[2020-06-27] MEDS: Gabapentin 300 MG CAPSULE PO ×2 (09:33→20:00)
[2020-06-27] MEDS: Escitalopram Oxalate 10 MG TABLET 30 MG PO (09:33)
[2020-06-27] MEDS: HYDROmorphone HCl 0.5 MG/0.5 ML SYRINGE 0.25 MG IVPUSH (13:10)
--- NOTE | 2020-06-27 15:46 | MHC.CM.PN ---
Met with pat. He is cooperative and responsive to conversation. Is concerned about having Marta visit. Per Lelia, Marta isn't feeling well and obtained permission for Vanessa Gaztam to visit over the weekend, each day. Staff and main lobby attendants aware, note left. [facility] has accepted this patient pending insurance auth. Bed should be availavble on Tuesday. [facility] requests another PT/OT eval to be done and sent to them on Tuesday. Informed [facility] of Guardian(Lelia Norman) request that visitation be allowed at [facility] for Mpt mental well being.
--- NOTE | 2020-06-27 16:52 | OP_ITS ---
SURGEON: Ady Crowell MD INDICATIONS: This is a 35-year-old gentleman with a closed brain injury, but physically extremely active, consented to undergo left tibial IM nailing. PREOPERATIVE DIAGNOSIS: Left distal 3rd tibial shaft fracture. POSTOPERATIVE DIAGNOSIS: Left distal 3rd tibial shaft fracture. PROCEDURE PERFORMED: IM nail, left tibia. ESTIMATED BLOOD LOSS: 200 mL. COMPLICATIONS: ANESTHESIA: General and regional. ASSISTANTS: None. SPECIMENS: IMPLANTS: Isabel 300 x 10 mm tibial nail. FLUIDS: 1500. TOURNIQUET TIME: 23 minutes. PROCEDURE IN DETAIL: The patient was brought to the operating room, placed supine on the operative table and prepped and draped in standard sterile fashion. Time-out was called to identify proper site, proper procedure, proper surgeon. IV antibiotics per weight was administered. I began by insufflating the tourniquet to 300 mmHg. I then made a standard midline incision over the medial aspect of the patellar tendon. The patellar retinaculum was incised and then an arthrotomy was performed just medial to the patellar tendon. My start site was palpated and identified using biplanar fluoroscopy and a guidewire was placed. This was over-reamed and my ball-tip guidewire was then placed into the distal tibia using [id number] technique. I then reamed to 11.5 and a 10 mm nail was placed. Distally, I went into valgus and so a charly incision was made at the level of the interlocking screw and locking screw was placed over the proximal aspect of the distal fragment, medial to the nail, and then the nail was reinserted with excellent reduction. Once this was done, I placed my 2 distal interlocking screws and removed my blocking screw. I then obtained biplanar fluoroscopic views and placed my one proximal locking screw. Once this was done, I was happy with all the views. I removed all instrumentation. I irrigated copiously. Distal and proximal incisions were closed with absorbable suture and frederic. The patient was placed in sterile dressing, extubated, and brought to the recovery room in stable condition. There were no known complications. MD AZAR Brock/MARIA TL / [id number]
[2020-06-28] VITALS (7 sets, daily range): BP systolic 117–156; BP diastolic 68–97; PULSE 83–108; RESP 16–20; TEMP 36.1–36.5; O2SAT 94–98
[2020-06-28] MEDS: Acetaminophen 325 MG TABLET 650 MG PO ×3 (06:07→20:32)
[2020-06-28] MEDS: oxyCODONE HCl Immed Release 5 MG TABLET PO ×3 (06:08→18:10)
[2020-06-28] MEDS: Escitalopram Oxalate 10 MG TABLET 30 MG PO (08:26)
[2020-06-28] MEDS: Loratadine 10 MG TABLET PO (08:26)
[2020-06-28] MEDS: Aspirin 325 MG TABLET PO ×2 (08:26→20:33)
[2020-06-28] MEDS: 0.9 % Sodium Chloride Flush 3 ML SYRINGE IVFLUSH ×2 (08:26→15:06)
[2020-06-28] MEDS: Gabapentin 300 MG CAPSULE PO ×2 (08:26→20:33)
[2020-06-28] MEDS: HYDROmorphone HCl 0.5 MG/0.5 ML SYRINGE 0.25 MG IVPUSH (15:06)
--- NOTE | 2020-06-28 15:28 | PM.PNORT ---
Subjective Subjective Date of Service: 06/28/20 Principal diagnosis: s/p IMN left tibia Interval history: POD 3 so LT tibia IMN no overnight events he has been working with PT. No concerns. Physical Exam Vital Signs: Vital Signs: Last Vital Signs Temp 97.4 F 06/28/20 12:00 Pulse 96 06/28/20 12:00 Resp 18 06/28/20 15:06 BP 139/76 06/28/20 12:00 Pulse Ox 96 06/28/20 12:00 Body Mass Index 27.4 Const: General: cooperative, healthy appearing and no acute distress Resp: Effort & Inspection: normal respiratory effort and able to speak in complete sentences Cardio: Rate: regular rate Peripheral pulses: Peripheral pulses 2+ throughout GI: Inspection: Yes normal to inspection Palpation (GI): Soft to palpation Skin: General skin exam: no rashes or lesions noted Extrem: Other: Left lower extremity incision clean, dry and intact. No erythema mild edema with bruising. Pulses present. Sensation and motor function intact. Progress Note: A&P Assessment and plan (1) Tibia fracture: Status: Acute Assessment and Plan: continue pain mgmnt continue lovenox for dvt ppx continue PT dispo -pending placement to [facility] Fall Risk Details Current Medications: Current Medications Generic Name Dose Route Start Last Admin Trade Name Freq PRN Reason Stop Dose Admin Acetaminophen 650 mg 06/25/20 05:33 06/28/20 14:08 Acetaminophen 325 Mg Tablet PO 650 mg Q6H PRN Administration Pain, Mild (Pain Scale 1-3) Aspirin 325 mg 06/26/20 12:00 06/28/20 08:26 Aspirin 325 Mg Tablet PO 325 mg BID GREY Administration Escitalopram Oxalate 30 mg 06/25/20 12:30 06/28/20 08:26 Escitalopram Oxalate 10 Mg Tablet PO 30 mg DAILY GREY Administration Gabapentin 300 mg 06/25/20 09:00 06/28/20 08:26 Gabapentin 300 Mg Capsule PO 300 mg BID GREY Administration Hydromorphone HCl 0.25 mg 06/25/20 17:22 06/28/20 15:06 Hydromorphone Hcl 0.5 Mg/0.5 Ml Syringe IVPUSH 0.25 mg Q6H PRN Administration Pain, Severe (Pain Scale 7-10) Loratadine 10 mg 06/25/20 12:15 06/28/20 08:26 Loratadine 10 Mg Tablet PO 10 mg DAILY GREY Administration Oxycodone HCl 5 mg 06/25/20 05:33 06/28/20 14:07 Oxycodone Hcl Immed Release 5 Mg Tablet PO 5 mg Q4H PRN Administration Pain, Moderate (Pain Scale 4-6 Pharmacy Consult 1 each 06/24/20 20:30 Consult Rx Perform Med Rec MISCELLANE ONCE PRN Consult order Senna 17.2 mg 06/25/20 05:33 Sennosides 8.6 Mg Tablet PO BEDTIME PRN Constipation Sodium Chloride 3 ml 06/25/20 05:33 06/28/20 15:06 0.9 % Sodium Chloride Flush 3 Ml Syringe IVFLUSH 3 ml QSHIFT GREY Administration Time Spent With Patient Time: Total time spent is greater than 50% in coordination of care (as documented) at patient's floor/unit and/or counseling patient: Time with patient: 15 - 24 minutes
--- NOTE | 2020-06-28 15:49 | MHC.CM.PN ---
PER CONVERSATION WITH GUARDIAN ARIANNE ([phone]), SHE PREFERS THAT [facility]. SHE ASKS THAT ORIGINAL PLAN FOR [facility] NO LONGER BE A CONSIDERATION. REFERRAL PLACED. CASE MANAGEMENT FOLLOWING. IF [facility] IS UNABLE TO OFFER, ARIANNE IS AGREEABLE TO OTHER REFERRALS ARIANNE ASKS THAT STAFF SPEAK WITH PATIENT'S STEP SISTER, MANNIE (CURRENTLY IN ROOM), ARIANNE IS IN [place] FOR FAMILY . CASE MANAGEMENT FOLLOWING
[2020-06-28] MEDS: Sennosides 8.6 MG TABLET 17.2 MG PO (20:33)
[2020-06-29] MEDS: 0.9 % Sodium Chloride Flush 3 ML SYRINGE IVFLUSH ×4 (00:20→20:51)
[2020-06-29] MEDS: HYDROmorphone HCl 0.5 MG/0.5 ML SYRINGE 0.25 MG IVPUSH ×2 (00:26→12:20)
[2020-06-29 03:47] VITALS: BP 118/74; PULSE 84; RESP 16; TEMP 36.7; O2SAT 97
[2020-06-29 07:38] VITALS: BP 118/69; PULSE 81; RESP 16; TEMP 36.4; O2SAT 97
[2020-06-29] MEDS: Aspirin 325 MG TABLET PO ×2 (09:22→20:51)
[2020-06-29] MEDS: oxyCODONE HCl Immed Release 5 MG TABLET PO ×3 (09:22→20:51)
[2020-06-29] MEDS: Escitalopram Oxalate 10 MG TABLET 30 MG PO (09:22)
[2020-06-29] MEDS: Gabapentin 300 MG CAPSULE PO ×2 (09:22→20:51)
[2020-06-29] MEDS: Loratadine 10 MG TABLET PO (09:22)
--- NOTE | 2020-06-29 11:03 | PM.PNORT ---
Subjective Subjective Date of Service: 06/29/20 Principal diagnosis: s/p IMN left tibia Interval history: POD 4 s/p LT tibia IMN no overnight events, resting in bed. Sister at bedside . States he was out of bed yesterday in chair and to commode . Had some increased pain but doing better now. Physical Exam Vital Signs: Vital Signs: Last Vital Signs Temp 97.6 F 06/29/20 07:38 Pulse 81 06/29/20 07:38 Resp 16 06/29/20 07:38 BP 118/69 06/29/20 07:38 Pulse Ox 97 06/29/20 07:38 Body Mass Index 27.4 Const: General: cooperative, healthy appearing and no acute distress Resp: Effort & Inspection: normal respiratory effort and able to speak in complete sentences Cardio: Rate: regular rate Peripheral pulses: Peripheral pulses 2+ throughout GI: Inspection: Yes normal to inspection Palpation (GI): Soft to palpation Skin: General skin exam: no rashes or lesions noted Extrem: Other: Left knee incision clean dry and intact. No erythema, mild edema and burising. sensation and pulses present. Progress Note: A&P Assessment and plan (1) Tibia fracture: Status: Acute Assessment and Plan: cont pain mgmnt q4 hrs cont PT/OT night splint to be worn at night to help with dorsiflexion dispo planning-pending placement Fall Risk Details Current Medications: Current Medications Generic Name Dose Route Start Last Admin Trade Name Freq PRN Reason Stop Dose Admin Acetaminophen 650 mg 06/25/20 05:33 06/28/20 20:32 Acetaminophen 325 Mg Tablet PO 650 mg Q6H PRN Administration Pain, Mild (Pain Scale 1-3) Aspirin 325 mg 06/26/20 12:00 06/29/20 09:22 Aspirin 325 Mg Tablet PO 325 mg BID GREY Administration Escitalopram Oxalate 30 mg 06/25/20 12:30 06/29/20 09:22 Escitalopram Oxalate 10 Mg Tablet PO 30 mg DAILY GREY Administration Gabapentin 300 mg 06/25/20 09:00 06/29/20 09:22 Gabapentin 300 Mg Capsule PO 300 mg BID GREY Administration Hydromorphone HCl 0.25 mg 06/25/20 17:22 06/29/20 00:26 Hydromorphone Hcl 0.5 Mg/0.5 Ml Syringe IVPUSH 0.25 mg Q6H PRN Administration Pain, Severe (Pain Scale 7-10) Loratadine 10 mg 06/25/20 12:15 06/29/20 09:22 Loratadine 10 Mg Tablet PO 10 mg DAILY GREY Administration Oxycodone HCl 5 mg 06/25/20 05:33 06/29/20 09:22 Oxycodone Hcl Immed Release 5 Mg Tablet PO 5 mg Q4H PRN Administration Pain, Moderate (Pain Scale 4-6 Pharmacy Consult 1 each 06/24/20 20:30 Consult Rx Perform Med Rec MISCELLANE ONCE PRN Consult order Senna 17.2 mg 06/25/20 05:33 06/28/20 20:33 Sennosides 8.6 Mg Tablet PO 17.2 mg BEDTIME PRN Administration Constipation Sodium Chloride 3 ml 06/25/20 05:33 06/29/20 09:22 0.9 % Sodium Chloride Flush 3 Ml Syringe IVFLUSH 3 ml QSHIFT GREY Administration Time Spent With Patient Time: Total time spent is greater than 50% in coordination of care (as documented) at patient's floor/unit and/or counseling patient: Time with patient: 15 - 24 minutes
[2020-06-29 11:43] VITALS: BP 115/80; PULSE 90; RESP 18; TEMP 36.4; O2SAT 96
[2020-06-29 12:20] VITALS: RESP 17
[2020-06-29 16:00] VITALS: BP 141/83; PULSE 90; RESP 18; TEMP 36.6; O2SAT 85
--- NOTE | 2020-06-29 16:18 | MHC.CM.PN ---
[facility] UNABLE TO OFFER SERVICES (NOT CONTRACTED WITH PATIENT'S INSURANCE) [facility] IS OFFERING SN AND P.T. SERVICES. THEY DO NOT HAVE A HOME HEALTH AID SERVICES. CASE MANAGEMENT FOLLOWING FOR ANTICIPATED DISCHARGE OF 06/30/2020.
[2020-06-29 20:00] VITALS: BP 127/82; PULSE 100; RESP 18; TEMP 36.3; O2SAT 97
[2020-06-30] VITALS (8 sets, daily range): BP systolic 116–140; BP diastolic 70–87; PULSE 82–101; RESP 16–19; TEMP 36–36.8; O2SAT 95–97
[2020-06-30 06:30] LABS: MANUAL DIFF FLAG NO
[2020-06-30 06:46] LABS: Basophils Percent Auto 0.6 % (0-2); Eosinophils Absolute Auto 0.3 X10*3/uL (0.0-0.4); Eosinophils Percent Auto 4.5 % (0-4); Hematocrit 33.7 % (42-52); Hemoglobin 11.3 g/dl (14.0-18.0); Imm Gran Abs Auto 0.03 X10*3/uL (0.00-0.03); Imm Gran Pct Auto 0.5 % (0.0-0.4); Lymphocytes Absolute Auto 1.9 X10*3/uL (1.2-4.9); Lymphocytes Percent Auto 28.2 % (20-40); Mean Corpuscular HGB Conc 33.5 g/dl (31.0-36.0); Mean Corpuscular Volume 86.6 fL (80-98); Mean Platelet Volume 10.1 fL (9.4-12.4); Monocytes Absolute Auto 0.5 X10*3/uL (0.1-1.2); Neutrophils Absolute Auto 3.9 X10*3/uL (2.0-8.3); Neutrophils Percent Auto 58.2 % (45-73); Platelet Count 290 X10*3/uL (160-400); Red Blood Count 3.89 X10*6/uL (4.60-5.80); Red Cell Distribution Width 12.8 % (11.0-16.0); White Blood Count 6.6 X10*3/uL (4.8-10.8)
[2020-06-30 07:25] LABS: Anion Gap 14 (12-20); Blood Urea Nitrogen 20 mg/dL (9-16); Carbon Dioxide 24 mmol/L (22-29); Chloride 105 mmol/L (96-108); Creatinine Clr Calc Pharmacy 136.7; Estimated Glomerular Filt Rate > 60; Glucose Random 97 mg/dL (60-115); Potassium 4.1 mmol/l (3.3-5.1); Sodium 139 mmol/L (135-145)
[2020-06-30] MEDS: Aspirin 325 MG TABLET PO ×2 (08:10→20:05)
[2020-06-30] MEDS: oxyCODONE HCl Immed Release 5 MG TABLET PO ×3 (08:11→18:26)
[2020-06-30] MEDS: Escitalopram Oxalate 10 MG TABLET 30 MG PO (08:11)
[2020-06-30] MEDS: Loratadine 10 MG TABLET PO (08:12)
[2020-06-30] MEDS: 0.9 % Sodium Chloride Flush 3 ML SYRINGE IVFLUSH ×2 (08:12→15:37)
[2020-06-30] MEDS: Gabapentin 300 MG CAPSULE PO ×2 (08:12→20:05)
[2020-06-30] MEDS: Acetaminophen 325 MG TABLET 650 MG PO ×2 (13:24→20:05)
--- NOTE | 2020-06-30 13:33 | MHC.CM.PN ---
Addendum entered by Aria Martinez 06/30/20 14:03: GUARDIAN/ ARIANNE'S PHONE NUMBER [phone] DIRECTOR ALUMNI RELATIONS/ TREVOR'S PHONE NUMBER [phone] Original Note: CALL RECEIVED FROM YOANAAN, ARIANNE ACUÑA NOW WANTS PATIENT GO TO [facility], BUT WANTS PATIENT TO BE ABLE TO HAVE AN AIDE STAY FOR AT LEAST 5 HOURS DURING THE DAY. [facility] UNABLE TO ACCOMMODATE THIS, AND BED OFFER IS NO LONGER AVAILABLE. ARIANNE CALLED BACK TO SAY THAT SHE WILL ACCEPT A BED OFFER FROM [facility] REGARDLESS. [facility] NOW HAS NO BED TO OFFER, AND THERE IS A WAIT LIST ACCORDING TO [facility]. ARIANNE THEN ASKS FOR ANY SNF REFERRAL THAT WILL ACCEPT PATIENT AND AN AIDE. [facility] OFFERING. GUARDIAN DOES NOT HAVE THE RIGHT TO PLACE PATIENT IN SNF, NOR DOES PATIENT HAVE A LEDEZMA ORDER. CURRENTLY, PAGE 1 AND 3 OF GUARDIANSHIP IN CHART. PAGE TWO IS MISSING, AND IS THE PAGE WHICH INDICATES THE RIGHT TO PLACE IN A SNF OR NOT. CALL PLACED TO PATIENT'S DDS WORKER DEBBIE LUNA ([phone]) AND MESSAGE LEFT WITH TWO RETURN CONTACT NUMBERS FOR THIS UPWARD BOUND DIRECTOR LEFT ON DEBBIE'S VOICEMAIL. PER CONVERSATION WITH PATIENT'S DIRECTOR ALUMNI RELATIONS, TREVOR, SHE IS UNABLE TO ACCOMMODATE PATIENT AT HOME, SHE DOES NOT HAVE A RAMP OR ABILITY TO TRANSFER PATIENT IN AND OUT OF HOME IF NEEDED. CASE MANAGEMENT CURRENTLY WAITING FOR PAGE TWO OF GUARDIANSHIP, ARIANNE IS ATTEMPTING TO HAVE [place] [facility]
--- NOTE | 2020-06-30 15:38 | MHC.CM.PN ---
[facility] OFFERING A BED AND GOING FOR AUTH. THIS REFERRAL WAS PLACED PER REQUEST OF GUARDIANARIANNE, WHO CALLED THIS FILLING STATION ATTENDANT JUST PRIOR TO 15:00. SURGICAL PA MADE AWARE OF NEED FOR RAPID COVID. ANTICIPATE DC TOMORROW IF NEGATIVE RESULTS RECEIVED.
--- NOTE | 2020-06-30 15:57 | MHC.CM.PN ---
2nd page of guardianship received and placed in chart. Guardian does not have authority for SNF placement or administration of antipsychotics medication administration in a SNF
--- NOTE | 2020-06-30 22:48 | PM.PNORT ---
Subjective Subjective Date of Service: 06/30/20 Principal diagnosis: s/p IMN left tibia Interval history: POD 5 Lt tib IMN No overnight events, resting in bed. Physical Exam Vital Signs: Vital Signs: Last Vital Signs Temp 97.7 F 06/30/20 19:15 Pulse 99 06/30/20 19:15 Resp 19 06/30/20 19:15 BP 126/87 06/30/20 19:15 Pulse Ox 96 06/30/20 19:15 Body Mass Index 27.4 Const: General: cooperative, healthy appearing and no acute distress Resp: Effort & Inspection: normal respiratory effort and able to speak in complete sentences Cardio: Rate: regular rate Peripheral pulses: Peripheral pulses 2+ throughout GI: Inspection: Yes normal to inspection Palpation (GI): Soft to palpation Skin: General skin exam: no rashes or lesions noted Extrem: Other: left knee bandage intact, no erythema, mild swelling with bruising. Pulses present. Progress Note: A&P Assessment and plan (1) Tibia fracture: Status: Acute Assessment and Plan: Continue pain mgmnt cont dvt ppx cont PT for LT tibia IMN Dispo planning-Pending PT eval, COVID test Fall Risk Details Current Medications: Current Medications Generic Name Dose Route Start Last Admin Trade Name Freq PRN Reason Stop Dose Admin Acetaminophen 650 mg 06/25/20 05:33 06/30/20 20:05 Acetaminophen 325 Mg Tablet PO 650 mg Q6H PRN Administration Pain, Mild (Pain Scale 1-3) Aspirin 325 mg 06/26/20 12:00 06/30/20 20:05 Aspirin 325 Mg Tablet PO 325 mg BID GREY Administration Escitalopram Oxalate 30 mg 06/25/20 12:30 06/30/20 08:11 Escitalopram Oxalate 10 Mg Tablet PO 30 mg DAILY GREY Administration Gabapentin 300 mg 06/25/20 09:00 06/30/20 20:05 Gabapentin 300 Mg Capsule PO 300 mg BID GREY Administration Loratadine 10 mg 06/25/20 12:15 06/30/20 08:12 Loratadine 10 Mg Tablet PO 10 mg DAILY GREY Administration Oxycodone HCl 5 mg 06/25/20 05:33 06/30/20 18:26 Oxycodone Hcl Immed Release 5 Mg Tablet PO 5 mg Q4H PRN Administration Pain, Moderate (Pain Scale 4-6 Pharmacy Consult 1 each 06/24/20 20:30 Consult Rx Perform Med Rec MISCELLANE ONCE PRN Consult order Senna 17.2 mg 06/25/20 05:33 06/28/20 20:33 Sennosides 8.6 Mg Tablet PO 17.2 mg BEDTIME PRN Administration Constipation Sodium Chloride 3 ml 06/25/20 05:33 06/30/20 15:37 0.9 % Sodium Chloride Flush 3 Ml Syringe IVFLUSH 3 ml QSHIFT GREY Administration Time Spent With Patient Time: Total time spent is greater than 50% in coordination of care (as documented) at patient's floor/unit and/or counseling patient: Time with patient: less than 15 minutes
[2020-07-01 00:05] LABS: COVID-19 Test Negative (Negative)
[2020-07-01] MEDS: 0.9 % Sodium Chloride Flush 3 ML SYRINGE IVFLUSH ×2 (00:05→08:02)
[2020-07-01 04:00] VITALS: BP 104/74; PULSE 84; RESP 19; TEMP 36.2; O2SAT 94
[2020-07-01 06:30] LABS: MANUAL DIFF FLAG NO
[2020-07-01 06:45] LABS: Basophils Absolute Auto 0.1 X10*3/uL (0.0-0.2); Basophils Percent Auto 0.7 % (0-2); Eosinophils Absolute Auto 0.2 X10*3/uL (0.0-0.4); Eosinophils Percent Auto 3.6 % (0-4); Hematocrit 33.4 % (42-52); Hemoglobin 11.2 g/dl (14.0-18.0); Imm Gran Abs Auto 0.05 X10*3/uL (0.00-0.03); Imm Gran Pct Auto 0.7 % (0.0-0.4); Lymphocytes Percent Auto 29.5 % (20-40); Mean Corpuscular HGB Conc 33.5 g/dl (31.0-36.0); Mean Corpuscular Hemoglobin 28.9 pg (27.0-33.0); Mean Corpuscular Volume 86.1 fL (80-98); Mean Platelet Volume 9.9 fL (9.4-12.4); Monocytes Absolute Auto 0.5 X10*3/uL (0.1-1.2); Monocytes Percent Auto 7.4 % (2-11); Neutrophils Absolute Auto 3.9 X10*3/uL (2.0-8.3); Neutrophils Percent Auto 58.1 % (45-73); Platelet Count 281 X10*3/uL (160-400); Red Blood Count 3.88 X10*6/uL (4.60-5.80); Red Cell Distribution Width 12.9 % (11.0-16.0); White Blood Count 6.8 X10*3/uL (4.8-10.8)
[2020-07-01 07:03] LABS: Anion Gap 12 (12-20); Blood Urea Nitrogen 18 mg/dL (9-16); Calcium 8.8 mg/dL (8.4-10.2); Carbon Dioxide 25 mmol/L (22-29); Chloride 104 mmol/L (96-108); Creatinine Clr Calc Pharmacy 138.6; Estimated Glomerular Filt Rate > 60; Glucose Random 93 mg/dL (60-115); Potassium 4.1 mmol/l (3.3-5.1); Sodium 137 mmol/L (135-145)
[2020-07-01 07:55] VITALS: BP 128/68; PULSE 77; RESP 17; TEMP 36.7; O2SAT 95
[2020-07-01] MEDS: Escitalopram Oxalate 10 MG TABLET 30 MG PO (08:01)
[2020-07-01] MEDS: Gabapentin 300 MG CAPSULE PO (08:01)
[2020-07-01] MEDS: Loratadine 10 MG TABLET PO (08:01)
[2020-07-01] MEDS: Aspirin 325 MG TABLET PO (08:02)
[2020-07-01 09:56] VITALS: BP 128/68; PULSE 77; O2SAT 95
[2020-07-01] MEDS: oxyCODONE HCl Immed Release 5 MG TABLET PO (10:01)
[2020-07-01 11:44] VITALS: BP 131/73; PULSE 99; RESP 19; TEMP 36.2; O2SAT 96
--- NOTE | 2020-07-01 12:37 | MHC.CM.PN ---
PATIENT OFFERED A BED AT [facility]. RN AND UNIT AWARE. GUARDIAN ARIANNE ([phone]) AWARE OF PLAN, AND SHE IS CALLING ELECTROCARDIOGRAPH REPAIRER, TREVOR. ARIANNE ASKS IF PATIWENT'S MAGAZINE EDITOR (AIDE) IS ABLE TO VISIT. THIS AUTOMOTIVE REFINISHER EXPLAINED THAT FACILITY IS INQUIRING WITH LEADERSHIP AND WILL INFORM THIS AUTOMOTIVE REFINISHER ONCE AN ANSWER IS MADE AVAILABLE. PER PRIOR (06/30/2020) CONVERSATION WITH ARIANNE, SHE UNDERSTANDS THAT AIDE MAY NOT BE ALLOWED TO VISIT DUE TO COVID RESTRICTIONS. ALTHOUGH NOT HAPPY WITH THIS, SHE VERBALIZED UNDERSTANDING AND ACCEPTANCE OF BED OFFER. [facility] REFERRAL MADE. NURSE TO NURSE CONTACT IS [phone]
--- NOTE | 2020-07-01 12:41 | P.DS_ITS ---
DS: Providers Provider Date of admission: 06/25/20 07:59 Primary care physician: Janice Trimble MD Consults: 06/25/20 05:33 Consult to Hospitalist Routine Consulting Provider: Hospitalist Reason for consultation: pre op clearance DS: Diagnosis Discharge Diagnosis (1) Tibia fracture: Status: Acute Problem details: Mr. Escalona is a 35 yo male with PMH significant for TBI from a fall at 2 yo. He was at work when he sustained a fall and fx the left tibial shaft. He was seen in the ED and admitted to the orthopedic service for surgical planning. DS: Medications Discharge Medications Home Medications: Home Medications Medication Instructions Recorded Confirmed acetaminophen 650 mg PO Q4H PRN 06/25/20 06/25/20 citalopram [Celexa] 60 mg PO DAILY 06/25/20 06/25/20 fluticasone propionate [Flonase] 2 spray INTRANASAL DAILY 06/25/20 06/25/20 gabapentin 300 mg PO BID 06/25/20 06/25/20 loratadine 10 mg PO DAILY 06/25/20 06/25/20 omeprazole 20 mg PO DAILY 06/25/20 06/25/20 Previous Rx's Medication Instructions Recorded oxycodone 5 mg PO Q4H PRN 7 Days #42 tab 07/01/20 DS: Summary Hospital Course Hospital Course: Mr. Escalona underwent a successful operative fixation of the left tibia. He was transferred to PACU then to the floor he recovered during his stay his vitals were stable afebrile at 97.1 labs unremarkable hemoglobin 11.2 hematocrit 33.4. Postop day 1 he was started on aspirin 325 mg p.o. b.i.d. for DVT prophylaxis and he also received physical therapy and occupational therapy services twice a day. Throughout his stay it was noted that he had some weakness with dorsiflexion on the left foot therefore he was given a night splint to wear only at night. Prior to discharge his incisions were clean dry and intact. He is weight-bearing as tolerated with assistance. He will be transferred to a short-term rehab. Time Spent with Patient Time attestation: Total time spent providing and/or coordinating discharge services: Physical Exam Vital Signs: Vital Signs: Last Vital Signs Temp 97.1 F 07/01/20 11:44 Pulse 99 07/01/20 11:44 Resp 19 07/01/20 11:44 BP 131/73 07/01/20 11:44 Pulse Ox 96 07/01/20 11:44 Body Mass Index 27.4 Const: General: cooperative, healthy appearing and no acute distress Resp: Effort & Inspection: normal respiratory effort and able to speak in complete sentences Cardio: Rate: regular rate Peripheral pulses: Peripheral pulses 2+ throughout GI: Inspection: Yes normal to inspection Palpation (GI): Soft to palpation Skin: General skin exam: no rashes or lesions noted Extrem: Other: Left knee incision clean dry and intact. No erythema, mild edema and bruising. Pulses present. Weakness with dorsiflexion left foot. DS: Data Data Completed and Pending Labs on day of discharge: 06/24/20 XR ankle LT min 3V Stat XR tibia fibula LT 2V Stat 06/24/20 20:08 Transfer Order Routine 06/24/20 20:30 LORazepam [Ativan] 0.5 mg IVPUSH ONCE ONE Morphine Sulfate 2 mg IVPUSH Q5M PRN ondansetron HCL [Zofran] 4 mg IVPUSH ONCE ONE 06/24/20 20:40 Type and Screen Stat COVID-19 ID NOW (Certess) Stat Complete Blood Count Auto Diff Stat Comprehensive Met. Panel Stat Partial Thromboplastin Time Stat Prothrombin Time INR Stat 06/25/20 05:33 Dextrose 5 % and 0.45 % NaCl [D51/2Ns] 1,000 ml IVCONT 80 mls/hr HYDROmorphone HCl [Dilaudid] 0.25 mg IVPUSH Q6H 06/25/20 09:00 gabapentin 300 mg PO BID 06/25/20 10:00 FL guidance in OR Routine 06/25/20 10:36 Midazolam HCl/PF [Versed] 2 mg .ROUTE .STK-MED ONE fentaNYL citrate/PF [Sublimaze] 50 mcg .ROUTE .STK-MED ONE 06/25/20 10:42 Lidocaine HCl 2 % MPF [Xylocaine 2 % MPF] 5 ml .ROUTE .STK-MED ONE dexAMETHasone sod phosphate [Decadron] 4 mg .ROUTE .STK-MED ONE ondansetron HCL [Zofran] 4 mg .ROUTE .STK-MED ONE propofoL [Diprivan] 200 mg IVPUSH .STK-MED ONE 06/25/20 11:24 Bupivacaine MPF 0.5 % [Sensorcaine MPF 0.5% 30 ML] 30 ml .ROUTE .STK-MED ONE 06/25/20 11:46 ceFAZolin Sodium/Dextrose,Iso [Ancef] 2 gm in 50 ml IV PREOP 06/25/20 12:04 ceFAZolin Sodium/Dextrose,Iso [Ancef] 2 gm in 50 ml .ROUTE As directed 06/25/20 12:45 Acetaminophen [Tylenol] 650 mg PO ONCE PRN Promethazine HCL [Phenergan] 6.5 mg 0.9 % Sodium Chloride [Ns] 50 ml IV ONCE 06/25/20 12:54 Ketorolac Tromethamine [Toradol] 30 mg .ROUTE .STK-MED ONE fentaNYL citrate/PF [Sublimaze] 50 mcg .ROUTE .STK-MED ONE 06/25/20 13:53 Transfer Order Routine 06/25/20 16:44 EKG Documentation DIRECTED 06/25/20 17:22 HYDROmorphone HCl [Dilaudid] 0.25 mg IVPUSH Q6H PRN 06/26/20 06:13 Basic Metabolic Panel Fasting DAILY@0600 Complete Blood Count Auto Diff DAILY@0600 06/30/20 06:03 Basic Metabolic Panel DAILY@0600 Complete Blood Count Auto Diff DAILY@0600 06/30/20 23:40 COVID-19 ID NOW (Guevara) Stat 07/01/20 06:08 Basic Metabolic Panel DAILY@0600 Complete Blood Count Auto Diff DAILY@0600 Laboratory Last Values WBC 6.8 X10*3/uL (4.8-10.8) 07/01/20 06:08 RBC 3.88 X10*6/uL (4.60-5.80) L 07/01/20 06:08 Hgb 11.2 g/dl (14.0-18.0) L 07/01/20 06:08 Hct 33.4 % (42-52) L 07/01/20 06:08 MCV 86.1 fL (80-98) 07/01/20 06:08 MCH 28.9 pg (27.0-33.0) 07/01/20 06:08 MCHC 33.5 g/dl (31.0-36.0) 07/01/20 06:08 RDW 12.9 % (11.0-16.0) 07/01/20 06:08 Plt Count 281 X10*3/uL (160-400) 07/01/20 06:08 MPV 9.9 fL (9.4-12.4) 07/01/20 06:08 Immature Gran % (Auto) 0.7 % (0.0-0.4) H 07/01/20 06:08 Neut % (Auto) 58.1 % (45-73) 07/01/20 06:08 Lymph % (Auto) 29.5 % (20-40) 07/01/20 06:08 [place] % (Auto) 7.4 % (2-11) 07/01/20 06:08 Eos % (Auto) 3.6 % (0-4) 07/01/20 06:08 Baso % (Auto) 0.7 % (0-2) 07/01/20 06:08 Lymph # (Auto) 2.0 X10*3/uL (1.2-4.9) 07/01/20 06:08 [place] # (Auto) 0.5 X10*3/uL (0.1-1.2) 07/01/20 06:08 Eos # (Auto) 0.2 X10*3/uL (0.0-0.4) 07/01/20 06:08 Baso # (Auto) 0.1 X10*3/uL (0.0-0.2) 07/01/20 06:08 Abs Immat Gran (auto) 0.05 X10*3/uL (0.00-0.03) H 07/01/20 06:08 Absolute Neuts (auto) 3.9 X10*3/uL (2.0-8.3) 07/01/20 06:08 Absolute Nucleated RBC 0.000 X10*3/uL (0.0-0.012) 07/01/20 06:08 Nucleated RBC % (auto) 0.0 /100WBC (0.0-0.2) 07/01/20 06:08 PT 11.9 SEC (10.8-13.0) 06/24/20 20:40 INR 1.0 (0.9-1.1) 06/24/20 20:40 APTT 24.7 SEC (24.1-38.0) 06/24/20 20:40 Sodium 137 mmol/L (135-145) 07/01/20 06:08 Potassium 4.1 mmol/l (3.3-5.1) 07/01/20 06:08 Chloride 104 mmol/L (96-108) 07/01/20 06:08 Carbon Dioxide 25 mmol/L (22-29) 07/01/20 06:08 Anion Gap 12 (-20) 07/01/20 06:08 BUN 18 mg/dL (9-16) H 07/01/20 06:08 Creatinine 0.72 mg/dL (0.5-1.4) 07/01/20 06:08 Estim Creat Clear Calc 138.6 07/01/20 06:08 Estimated GFR > 60 07/01/20 06:08 Random Glucose 93 mg/dL (60-115) 07/01/20 06:08 Fasting Glucose 117 mg/dL (60-99) H 06/26/20 06:13 Calcium 8.8 mg/dL (8.4-10.2) 07/01/20 06:08 Total Bilirubin 0.6 mg/dL (0.0-1.0) 06/24/20 20:40 AST 22 U/L (5-37) 06/24/20 20:40 ALT 42 U/L (0-40) H 06/24/20 20:40 Alkaline Phosphatase 59 U/L (39-117) 06/24/20 20:40 Total Protein 8.4 g/dL (6.5-8.0) H 06/24/20 20:40 Albumin 4.8 g/dL (3.5-5.0) 06/24/20 20:40 COVID-19 (MARSHALL) Negative (Negative) 06/30/20 23:40 COVID-19 Clin Com See Note 06/30/20 23:40 Blood Type A Positive 06/24/20 20:40 Antibody Screen NEGATIVE 06/24/20 20:40 Discharge Plan Discharge Patient Disposition: Xfer SNF Referrals: Maddison Coronado PA-C [Physician Deployment Specialist] - (Follow up with orthopedics 2 wk post op) Discharge Medications: New oxycodone 5 mg Tablet 5 mg PO Q4H PRN (Reason: Pain, Moderate (Pain Scale 4-6) 7 Days Qty: 42 RF: 0 acetaminophen 325 mg Tablet 650 mg PO Q6H PRN (Reason: Pain, Mild (Pain Scale 1-3)) 30 Days Qty: 240 RF: 0 sennosides [Senna Lax] 8.6 mg Tablet 17.2 mg PO BEDTIME PRN (Reason: Constipation) 30 Days Qty: 60 RF: 0 aspirin 325 mg Tablet 325 mg PO BID 30 Days Qty: 60 RF: 0 Continued citalopram [Celexa] 20 mg Tablet 60 mg PO DAILY RF: 0 gabapentin 300 mg Capsule 300 mg PO BID RF: 0 omeprazole 20 mg Capsule,Delayed Release(Dr/Ec) 20 mg PO DAILY RF: 0 fluticasone propionate [Flonase] 50 mcg/actuation [place],Suspension 2 spray INTRANASAL DAILY RF: 0 loratadine 10 mg Tablet 10 mg PO DAILY RF: 0 Discontinued acetaminophen 325 mg Tablet 650 mg PO Q4H PRN (Reason: body aches/fever) RF: 0 Discharge Orders: Discharge Order (Routine); Ordered 07/01/20 Ordered By: Maddison Coronado Diet: regular diet Activity on Discharge: Use cane or walker Activity Restrictions/Additional Instructions: WBAT with assistance Gait training, Knee ROM, Isometric quad strength, ADLs Continue dvt ppx x4 weeks Keep dressing clean,dry and intact-no showering or tub baths Follow up with Orthopedics in 2 weeks Visit Report Forms: Patient Portal Discharge page Care Plan Goals: Restore function of the left knee Health Concerns: None Plan of Treatment: Physical Therapy Pain management DVT prophylaxis
--- NOTE | 2020-07-01 12:45 | MHC.CM.PN ---
ARIEL [place] TO FOLLOW FOR SERVICES POST ACUTE REHAB DISCHARGE
--- NOTE | 2020-07-01 12:49 | MHC.INPTTRAN ---
Pt post op day 6 from Left tibial I-M Nailing. Tegaderm dressing ankle and knee area C/D/I. Pt has split for L leg. Pt alert and oriented to person and place. 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 Pt able to ambulate 1-2 assist with hemiwalker. After pt ambulated he had increased pain, given oxycodone 5mg @ 1000, with some effect. Covid negative. Has guardian and caregiver, lives at [facility]. Nurse to Nurse completed.
--- NOTE | 2020-07-01 14:21 | MHC.CM.PN ---
THIS AGRICULTURAL RESEARCH TECHNICIAN EXPLAIN TO SAW SHARPENER TREVOR (IN ROOM) THAT [facility] HAS NOT YET GIVEN A RESPONSE WHETHER OR NOT SHE CAN VISIT PATIENT AT REHAB. LIAISON OF FACILITY (LYN) WILL CONTACT TREVOR ONCE SHE HAS AN ANSWER, AND LYN'S CONTACT NUMBER ([phone]) GIVEN TO TREVRO IN THE EVENT THAT SHE DOES NOT HAVE AN ANSWER BY THE END OF THE DAY. THIS DONE WITH LYN'S PERMISSION.
== END 2020-07-01 14:29 | disposition skilled nursing facility (03) | DRG 313 ==
LOC: HO.ED 06-25 09:01 → HO.S3 06-25 11:54
PROVIDERS: Nurse Practitioner Primary Care; Physician Assistant; Admitting Provider Orthopaedic Surgery; Emergency Provider Emergency Medicine Emergency Medical Services; PCP Student in an Organized Health Care Education/Training Program; Visit Provider Orthopaedic Surgery
PROC: 0QSH36Z Reposition Left Tibia with Intramedullary Internal Fixation Device, Percutaneous Approach (ICD-10-PCS; principal; 2020-06-25 10:50)
DX: S89.102A Unspecified physeal fracture of lower end of left tibia, initial encounter for closed fracture (principal); F41.1 Generalized anxiety disorder; W18.30XA Fall on same level, unspecified, initial encounter; Y93.9 Activity, unspecified; S82.832A Other fracture of upper and lower end of left fibula, initial encounter for closed fracture; Y92.9 Unspecified place or not applicable; Y99.9 Unspecified external cause status; K21.9 Gastro-esophageal reflux disease without esophagitis; Z20.828 Contact with and (suspected) exposure to other viral communicable diseases; Z87.820 Personal history of traumatic brain injury; Z79.51 Long term (current) use of inhaled steroids; Z79.82 Long term (current) use of aspirin; Z79.891 Long term (current) use of opiate analgesic; Z79.899 Other long term (current) drug therapy
CPT/HCPCS: 36415; 73590; 73610; 80048; 80053; 85025; 85610; 85730; 86850; 86900; 86901; 87635; 96374; 96375; 97110; 97116; 97162; 97166; 97530; 97535; 99285; C1713; C1769; J0690; J1100; J1170; J1885; J2060; J2250; J2270; J2405; J3010

== ENCOUNTER 2020-07-14 08:45 | Outpatient (REF) | payer MEDICAID, SELFPAY ==
--- NOTE | 2020-07-14 14:48 | XR_ITS ---
EXAMINATION: XR TIBIA AND FIBULA, LEFT CLINICAL INFORMATION: Status post open reduction tibial fracture. COMPARISON: Radiographs left lower leg 06/24/2020 TECHNIQUE: AP and lateral views of the left tibia and fibula were obtained. FINDINGS: The distal tibial shaft fracture is reduced with intramedullary leliani, proximal interlocking screw, and 2 distal interlocking screws. The hardware is intact. Fracture fragments are in near-anatomic alignment. There is some early callus formation present. There are overlying skin frederic. The proximal fibular shaft fracture is in near-anatomic alignment with some associated callus formation on current exam. XR/XR tibia fibula LT 2V IMPRESSION: Status post open reduction internal fixation tibial fracture. Hardware intact. Near-anatomic alignment. Early callus formation.
== END 2020-07-14 08:46 | disposition home or self-care (01) ==
LOC: HO.HOSX 08:45
PROVIDERS: Visit Provider Physician Assistant
DX: S82.202A Unspecified fracture of shaft of left tibia, initial encounter for closed fracture (principal); X58.XXXA Exposure to other specified factors, initial encounter; Y93.9 Activity, unspecified; Y92.9 Unspecified place or not applicable; Y99.8 Other external cause status
CPT/HCPCS: 73590; 99212

== ENCOUNTER 2020-08-14 09:02 | Outpatient (REF) | payer MEDICAID, SELFPAY ==
--- NOTE | 2020-08-14 10:16 | XR_ITS ---
EXAMINATION: XR TIBIA AND FIBULA, LEFT CLINICAL INFORMATION: Tibia fracture. Follow-up. COMPARISON: Most recent left tibia and fibula radiographs dated 07/14/2020. TECHNIQUE: AP and lateral views of the left tibia and fibula were obtained. FINDINGS: Redemonstration of a tibial intramedullary leilani with proximal and distal fixation screws. No acute hardware fracture. No perihardware lucency to suggest loosening or infection. Redemonstration of a distal tibial fracture in unchanged anatomic alignment with interval new bone/callus formation. Redemonstration of a proximal fibular fracture in unchanged anatomic alignment with interval new bone/callus formation. No osseous erosion. No abnormal soft tissue calcification. XR/XR tibia fibula LT 2V IMPRESSION: Left tibia ORIF without evidence of hardware complication. Distal tibial and proximal fibular fractures in unchanged anatomic alignment with interval new bone/callus formation.
== END 2020-08-14 09:03 | disposition home or self-care (01) ==
LOC: HO.HOSX 09:02
PROVIDERS: Visit Provider Orthopaedic Surgery
DX: Z47.89 Encounter for other orthopedic aftercare (principal); S82.209D Unspecified fracture of shaft of unspecified tibia, subsequent encounter for closed fracture with routine healing
CPT/HCPCS: 73590; 99212

== ENCOUNTER 2021-01-02 15:56 | Emergency (ER) | payer MEDICAID, SELFPAY ==
--- NOTE | ~2021-01-02 | XR_ITS ---
EXAMINATION: XR KNEE, LEFT CLINICAL INFORMATION: Fall with knee pain COMPARISON: Left tib-fib films 08/14/2020 TECHNIQUE: Two views of the left knee. FINDINGS: The knee joint appears unremarkable. No effusion or fracture is seen. Intramedullary leilani seen in the tibia with proximal screw. Old healed fibular fracture again seen. XR/XR knee LT 2V IMPRESSION: Stable postop changes tibia with old healed fracture fibula. No evidence of an acute injury
[2021-01-02 17:32] VITALS: BP 123/80; PULSE 84; RESP 18; TEMP 37; O2SAT 98; BMI 28.2
--- NOTE | 2021-01-02 18:11 | ED_ITS ---
HPI - Fall General Chief Complaint: Fall Stated Complaint: fall Time Seen by Provider: 01/02/21 17:43 Source: patient Mode of arrival: ambulatory Limitations: other (Cognitive impairment) History of Present Illness HPI Narrative: 35-year-old male with past medical history of cerebral palsy, cognitive impairment, presents for evaluation after falling at his day program. staff forester stated that he fell on his left knee, does have a past left knee surgical history for fracture repair. patient is unable to answer appropriately if he is in pain. There is no report of abnormal gait and there are no visible injuries. MD complaint: fall Onset (ago): hour(s) (Several hours upon arrival) Fall from: standing Fall witnessed: yes, by living facility staff Place fall occurred: other (Day program) Loss of consciousness: none Prolonged down time: no Symptoms prior to fall: none Context: tripped/slipped Location of injury: other (Right knee) Severity: mild Severity scale (1-10): 1 Associated symptoms (after fall): denies Related Data Home Medications Medication Instructions Recorded Confirmed citalopram [Celexa] 60 mg PO DAILY 06/25/20 06/25/20 fluticasone propionate 2 spray INTRANASAL DAILY 06/25/20 06/25/20 gabapentin 300 mg PO BID 06/25/20 06/25/20 loratadine 10 mg PO DAILY 06/25/20 06/25/20 omeprazole 20 mg PO DAILY 06/25/20 06/25/20 Previous Rx's Medication Instructions Recorded acetaminophen 650 mg PO Q6H PRN 30 Days #240 tab 07/01/20 aspirin 325 mg PO BID 30 Days #60 tab 07/01/20 oxycodone 5 mg PO Q4H PRN 7 Days #42 tab 07/01/20 sennosides [Senna Lax] 17.2 mg PO BEDTIME PRN 30 Days #60 07/01/20 tab Allergies Allergy/AdvReac Type Severity Reaction Status Date / Time No Known Allergies Allergy Verified 01/02/21 17:31 [No Known Allergies*] Review of Systems Review of Systems: Constitutional: No Fever, No Chills ENT/Mouth: No Ear Pain, No Hoarseness, No sore throat Eyes: No Eye Pain, No Swelling, No Redness, No Foreign Body Cardiovascular: No Chest Pain, No SOB Respiratory: No Cough, No Dyspnea Gastrointestinal: No Nausea, No Vomiting, No Diarrhea, No abdominal Pain Genitourinary: No Dysuria, No Hematuria Musculoskeletal: positive left knee pain, No Myalgias, No Joint Swelling Skin: No Skin lacerations, No rash Neuro: No Weakness, No Numbness, No Paresthesias, No Loss of Consciousness, No Dizziness, No Headache Psych: No Anxiety/Panic, No Depression Heme/Lymph: no easy bruising, no Lymphadenopathy Endocrine: No Polyuria, No Polydipsia Yes all other systems are reviewed and are negative [facility] Past Medical History Attestation statement: The following information was validated with the patient. Source: old records reviewed Medical History Generalized anxiety disorder GERD (gastroesophageal reflux disease) Intellectual disability Obesity Traumatic brain injury Family History Family History Other HTN (hypertension) Social History Social History Household Members: Foster Family Housing: House Do you presently have visiting nurse or other home services: No Alcohol intake: never Second Hand Smoke Exposure: No Advance Directives: No Advance Directives Information Provided: Yes service: No Current occupational status: disabled Physical Exam Vital Signs: Vital Signs: Last Vital Signs Temp 98.6 F 01/02/21 17:32 Pulse 84 01/02/21 17:32 Resp 18 01/02/21 17:32 BP 123/80 01/02/21 17:32 Pulse Ox 98 01/02/21 17:32 Body Mass Index 28.2 Appearance: Alert. Oriented X3. No acute distress. Eyes: Pupils equal, round and reactive to light. ENT: Pharynx normal. Neck: Normal inspection. Neck supple. CVS: Normal heart rate and rhythm. Pulses normal. Respiratory: No respiratory distress. Breath sounds normal. Abdomen: Soft and nontender. Skin: Skin warm and dry. Normal skin color. Normal skin turgor. Extremities: No swelling, edema, bruising, or abrasions noted. Surgical scar present. Negative anterior posterior drawer, full range of motion to hips, bilateral knees, ankles. No crepitus. Neuro: No motor deficit. No sensory deficit. Course Course Course Narrative: 35-year-old male presents for injuries sustained from a fall at his day program. Physical exam is negative. No visible injuries noted. Will order x-ray as patient is unable to appropriately described pain. X-rays negative for acute findings. Plan care to discharge home. Patient's house staff verbalized understanding of and agrees plan of care. MDM - Fall Differential Diagnosis Differential diagnosis: Likely dislocation and fracture Medical Records Attestation: I reviewed the patient's medical records. Imaging Data Left knee: Attestation: I personally reviewed and interpreted this imaging study as follows: Radiologist's impression: IMPRESSION: Stable postop changes tibia with old healed fracture fibula. No evidence of an acute injury Discharge Plan Discharge Clinical Impression: Knee abrasion Qualifiers: Encounter type: initial encounter Laterality: left Qualified Code(s): S80.212A - Abrasion, left knee, initial encounter Fall Qualifiers: Encounter type: initial encounter Qualified Code(s): W19.XXXA - Unspecified fall, initial encounter Patient Disposition: Home, Self-Care Instructions: Abrasion (ED) Additional Instructions: You were evaluated for injury sustained from a fall at your day program. Your physical exam was normal. Your x-rays are negative for fractures and dislocation findings. You may return to the day program without any restrictions starting tomorrow. Thank you for choosing this emergency department for evaluation. Please follow-up with primary care physician as needed. Return to the emergency department for any new, concerning, or worsening symptoms. Prescriptions: No Action citalopram [Celexa] 20 mg Tablet 60 mg PO DAILY RF: 0 gabapentin 300 mg Capsule 300 mg PO BID RF: 0 omeprazole 20 mg Capsule,Delayed Release(Dr/Ec) 20 mg PO DAILY RF: 0 fluticasone propionate 50 mcg/actuation [place],Suspension 2 spray INTRANASAL DAILY RF: 0 loratadine 10 mg Tablet 10 mg PO DAILY RF: 0 oxycodone 5 mg Tablet 5 mg PO Q4H PRN (Reason: Pain, Moderate (Pain Scale 4-6) 7 Days Qty: 42 RF: 0 sennosides [Senna Lax] 8.6 mg Tablet 17.2 mg PO BEDTIME PRN (Reason: Constipation) 30 Days Qty: 60 RF: 0 acetaminophen 325 mg Tablet 650 mg PO Q6H PRN (Reason: Pain, Mild (Pain Scale 1-3)) 30 Days Qty: 240 RF: 0 aspirin 325 mg Tablet 325 mg PO BID 30 Days Qty: 60 RF: 0 Stand Alone Forms: Work/School Release Interventions: ED Discharge Assessment Last Done: 01/02/21 18:47 Discharge Date/Time: 01/02/21 18:48
== END 2021-01-02 18:48 | disposition home or self-care (01) ==
PROVIDERS: Emergency Provider Internal Medicine; PCP Student in an Organized Health Care Education/Training Program
DX: S80.212A Abrasion, left knee, initial encounter (principal); G80.9 Cerebral palsy, unspecified; G31.84 Mild cognitive impairment of uncertain or unknown etiology; W01.0XXA Fall on same level from slipping, tripping and stumbling without subsequent striking against object, initial encounter; Y93.9 Activity, unspecified; Y92.9 Unspecified place or not applicable; Y99.9 Unspecified external cause status
CPT/HCPCS: 73560; 99282; 99283

== ENCOUNTER 2021-02-10 16:00 | Outpatient (RCR) | payer MEDICAID, SELFPAY | END 2021-02-10 16:24 | disposition home or self-care (01) | LOC: HO.PT 16:00 | PROVIDERS: PCP Student in an Organized Health Care Education/Training Program; Visit Provider Student in an Organized Health Care Education/Training Program | DX: S82.224D Nondisplaced transverse fracture of shaft of right tibia, subsequent encounter for closed fracture with routine healing (principal) | CPT/HCPCS: 97110; 97162 ==

== ENCOUNTER 2021-03-15 17:00 | Emergency (ER) | payer MEDICAID, SELFPAY ==
[2021-03-15 17:46] VITALS: BP 148/78; PULSE 91; RESP 18; TEMP 35.8; O2SAT 95; BMI 30.5
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
== END 2021-03-15 20:14 | disposition home or self-care (01) ==
PROVIDERS: Emergency Provider Internal Medicine; PCP Student in an Organized Health Care Education/Training Program
DX: T21.10XA Burn of first degree of trunk, unspecified site, initial encounter (principal); T31.0 Burns involving less than 10% of body surface; R10.9 Unspecified abdominal pain; X08.8XXA Exposure to other specified smoke, fire and flames, initial encounter; Y93.9 Activity, unspecified; Y92.9 Unspecified place or not applicable; Y99.9 Unspecified external cause status
CPT/HCPCS: 99283

== ENCOUNTER 2022-08-31 07:46 | Outpatient (REF) | payer MEDICAID, SELFPAY ==
[2022-08-31 09:19] LABS: Alanine Aminotransferase 45 U/L (0-40); Albumin Level 4.6 g/dL (3.5-5.0); Alkaline Phosphatase 66 U/L (39-117); Anion Gap 15 (12-20); Aspartate Amino Transferase 22 U/L (5-37); Bilirubin Direct 0.2 mg/dL (0.0-0.5); Blood Urea Nitrogen 14 mg/dL (9-16); Calcium 9.7 mg/dL (8.4-10.2); Carbon Dioxide 25 mmol/L (22-29); Chloride 104 mmol/L (96-108); Cholesterol 192 mg/dL; Estimated Glomerular Filt Rate > 60; Glucose Random 85 mg/dL (60-115); HDL Cholesterol 54 mg/dL; LDL Cholesterol Calculated 124 mg/dl; Potassium 4.3 mmol/L (3.3-5.1); Sodium 140 mmol/L (135-145); Total Protein 8.1 g/dL (6.5-8.0); Triglycerides 71 mg/dL
== END 2022-08-31 07:47 | disposition home or self-care (01) ==
LOC: HO.LAB 07:46
PROVIDERS: PCP Student in an Organized Health Care Education/Training Program; Visit Provider Student in an Organized Health Care Education/Training Program
DX: F41.1 Generalized anxiety disorder (principal); R03.0 Elevated blood-pressure reading, without diagnosis of hypertension
CPT/HCPCS: 36415; 80048; 80061; 80076